=== PATIENT | female | born 1975 | race Hispanic/Latino ===

== ENCOUNTER 2021-04-02 06:55 | Inpatient (IN) | payer OTHER ==
[2021-04-02] VITALS (8 sets, daily range): BP systolic 113–143; BP diastolic 67–77
[~2021-04-02] VITALS: Ht 154.9 cm; Wt 76.7 kg
[~2021-04-02 06:55] MED LIST: AMOX-420 PO; ASPI-556 PO; ATOR40TA69 PO; CLOP75TA14 PO; ERGO500014 PO; ETAN50SY SQ; FISH1CAP27 PO; FOLI1TAB15 PO; FURO40TA5 PO; HYDR200T82 PO; IBUP-2077 PO; LACT1CAP58 PO; LEVO500T2 PO; METH25VI11 SQ; METO37.5 PO; PANT40TA54 PO; PRED2.5T PO; PRED20TA3 PO
[2021-04-02] MEDS ORDERED: ACETAMINOPHEN 500 MG TABLET PO SCH (07:30)
[2021-04-02 08:03] LABS: ABG BASE EXCESS 1.5 mmol/L (-2.0-3.0); ABG HCO3 24.1 mmol/L (21.0-28.0); ABG OXYGEN SATURATION 94.7 % (95.0-99.0); ABG PCO2 33 mmHg (32-45)
[2021-04-02 09:46] LABS: BASOPHILS % (AUTO) 0.3 % (0.0-5.0); EOSINOPHILS % (AUTO) 0.9 % (0.0-8.0); HEMATOCRIT 37.4 % (36-48); LYMPHOCYTES % (AUTO) 12.1 % (21.0-51.0); MEAN CORPUSCULAR HGB CONC 31.8 g/dL (32.0-36.0); MONOCYTES % (AUTO) 14.9 % (3.0-13.0); NEUTROPHILS % (AUTO) 71.2 % (40.0-77.0); PLATELET COUNT (AUTO) 189 K/uL (130-400); RED CELL DISTRIBUTION WIDTH 17.6 % (11.0-15.5); WHITE BLOOD COUNT (AUTO) 14.4 K/uL (4.8-10.8)
[2021-04-02 09:54] LABS: CREATININE 1.1 mg/dL (0.5-1.5); POTASSIUM 3.4 mmol/L (3.5-5.1)
[2021-04-02 09:56] LABS: INR 1.15 (0.85-1.15); PROTHROMBIN TIME 12.4 SEC (9.6-11.6)
[2021-04-02 09:59] LABS: ALBUMIN 2.4 g/dL (3.5-5.0); BILIRUBIN,TOTAL 0.5 mg/dL (0.2-1.0)
[2021-04-02 10:25] LABS: APPEARANCE,URINE Turbid (CLEAR); BILIRUBIN,URINE Negative (NEGATIVE); COLOR,URINE Dark Yellow (YELLOW); GLUCOSE, URINE (UA) Negative (NEGATIVE); KETONES,URINE Trace mg/dL (NEGATIVE); LEUKOCYTE ESTERASE ,URINE Large (NEGATIVE); NITRATE,URINE Positive (NEGATIVE); OCCULT BLOOD,URINE Large (NEGATIVE); PH,URINE 5.5 (5.0-8.0); PROTEIN,URINE POS 2+ mg/dL (NEGATIVE)
[2021-04-02 11:06] LABS: BACTERIA,URINE Moderate /HPF (None Seen); MUCUS,URINE Few LPF (None Seen); RBC,URINE >100 /HPF (0-1); WBC,URINE >100 /HPF (0-1); YEAST,URINE BUDDING Rare /HPF (None Seen)
[2021-04-02] MEDS ORDERED: CEFTRIAXONE SODIUM IV ONE (12:30)
[2021-04-02] MEDS ORDERED: CEFTRIAXONE SODIUM 2 GM VIAL IVP SCH (12:30)
[2021-04-02] MEDS ORDERED: SODIUM CHLORIDE 0.9% IV ONE (12:30)
[2021-04-02] MEDS ORDERED: PIP/TAZ ZOSYN 3.375G 3.375 GM VIAL IVPB SCH (13:00)
[2021-04-02] MEDS ORDERED: 0.9% SODIUM CHLORIDE 50 ML IV BAG IV SCH (13:00)
[2021-04-02] MEDS ORDERED: SODIUM CHLORIDE 0.9% 50 ML IV ONE (13:21)
[2021-04-02] MEDS: ZOSYN 3.375GM+NS 50ML 50 ML IV SCH ×2 (13:22→21:08)
[2021-04-02] MEDS ORDERED: ACETAMINOPHEN-CODEINE 300/30MG TAB PO PRN (13:30)
[2021-04-02] MEDS ORDERED: LACTULOSE 20 GM/30 ML UDCUP PO PRN (13:30)
[2021-04-02] MEDS ORDERED: MAG HYDROX/AL HYDROX/SIMETH ES 30 ML SUSP UDCUP PO PRN (13:30)
[2021-04-02 13:49] LABS: CRP QUANTITATIVE 432.9 mg/L (0.00-9.0)
[2021-04-02] MEDS: LACTATED RINGERS 1000ML 1,000 ML IV SCH (14:37)
[2021-04-02] MEDS: IPRATROPIUM/ALBUTEROL SULFATE 3 ML SOLUTION IH PRN ×2 (14:49→19:37)
[2021-04-02] MEDS ORDERED: ACETAMINOPHEN 325 MG TAB PO PRN (19:00)
[2021-04-02] MEDS ORDERED: FAMOTIDINE 20MG TAB 20 MG TAB PO SCH (21:00)
[2021-04-02] MEDS: PREDNISONE 5 MG TABLET PO SCH (21:07)
[2021-04-03] VITALS (11 sets, daily range): BP systolic 102–153; BP diastolic 66–89
[2021-04-03] MEDS: IPRATROPIUM/ALBUTEROL SULFATE 3 ML SOLUTION IH PRN ×4 (00:05→23:24)
[2021-04-03] MEDS ORDERED: PRED5POW11 MC (01:47)
[2021-04-03] MEDS ORDERED: FAMO20TA8 PO (01:47)
[2021-04-03] MEDS ORDERED: SULF500T8 PO (01:58)
[2021-04-03] MEDS ORDERED: FERS325 PO (01:58)
[2021-04-03] MEDS ORDERED: AZAT50TA17 PO (01:58)
[2021-04-03] MEDS ORDERED: PRED5TAB PO (01:58)
[2021-04-03] MEDS: LACTATED RINGERS 1000ML 1,000 ML IV SCH (04:08)
[2021-04-03] MEDS: ZOSYN 3.375GM+NS 50ML 50 ML IV SCH ×3 (05:01→21:15)
[2021-04-03] MEDS ORDERED: ADAL40SY SQ (07:06)
[2021-04-03 07:32] LABS: BASOPHILS % (AUTO) 0.3 % (0.0-5.0); EOSINOPHILS % (AUTO) 0.2 % (0.0-8.0); HEMATOCRIT 32.7 % (36-48); LYMPHOCYTES % (AUTO) 21.8 % (21.0-51.0); MEAN CORPUSCULAR HEMOGLOBIN 27.1 pg (27.0-33.0); MEAN CORPUSCULAR HGB CONC 31.8 g/dL (32.0-36.0); MEAN CORPUSCULAR VOLUME 85.2 fL (79-99); MONOCYTES % (AUTO) 10.4 % (3.0-13.0); NEUTROPHILS % (AUTO) 66.9 % (40.0-77.0); PLATELET COUNT (AUTO) 181 K/uL (130-400); RED BLOOD CELL COUNT(AUTO) 3.84 MIL/uL (4.00-5.50); RED CELL DISTRIBUTION WIDTH 17.9 % (11.0-15.5); WHITE BLOOD COUNT (AUTO) 10.5 K/uL (4.8-10.8)
[2021-04-03 07:48] LABS: ALBUMIN 2.1 g/dL (3.5-5.0); BILIRUBIN,TOTAL 0.3 mg/dL (0.2-1.0); CREATININE 0.9 mg/dL (0.5-1.5); MAGNESIUM 2.5 mg/dL (1.80-2.40); POTASSIUM 3.4 mmol/L (3.5-5.1); TOTAL PROTEIN, SERUM 7.4 g/dL (6.0-8.3)
[2021-04-03] MEDS: SULFASALAZINE 500 MG TAB.DR PO SCH ×2 (08:53→21:08)
[2021-04-03] MEDS: PANTOPRAZOLE SODIUM 40 MG TABLET.DR PO SCH (08:54)
[2021-04-03] MEDS: FERROUS SULFATE 325 MG TABLET.DR PO SCH (08:54)
[2021-04-03] MEDS: ENOXAPARIN SODIUM 40 MG/0.4 ML SYRINGE SQ SCH (08:54)
[2021-04-03] MEDS ORDERED: FAMOTIDINE 20MG TAB 20 MG TAB PO SCH (09:00)
[2021-04-03] MEDS ORDERED: SODIUM CHLORIDE 0.9% 50 ML IV ONE (13:14)
[2021-04-03] MEDS: PREDNISONE 5 MG TABLET PO SCH (21:08)
[2021-04-04] VITALS (7 sets, daily range): BP systolic 122–150; BP diastolic 68–93
[2021-04-04] MEDS: ZOSYN 3.375GM+NS 50ML 50 ML IV SCH (05:16)
[2021-04-04 06:24] LABS: BASOPHILS % (AUTO) 0.4 % (0.0-5.0); EOSINOPHILS % (AUTO) 0.3 % (0.0-8.0); LYMPHOCYTES % (AUTO) 19.8 % (21.0-51.0); MEAN CORPUSCULAR HEMOGLOBIN 26.8 pg (27.0-33.0); MEAN CORPUSCULAR HGB CONC 31.2 g/dL (32.0-36.0); MEAN CORPUSCULAR VOLUME 85.7 fL (79-99); NEUTROPHILS % (AUTO) 69.8 % (40.0-77.0); PLATELET COUNT (AUTO) 240 K/uL (130-400); RED BLOOD CELL COUNT(AUTO) 3.85 MIL/uL (4.00-5.50); RED CELL DISTRIBUTION WIDTH 17.5 % (11.0-15.5); WHITE BLOOD COUNT (AUTO) 7.5 K/uL (4.8-10.8)
[2021-04-04 06:55] LABS: CREATININE 0.8 mg/dL (0.5-1.5); POTASSIUM 3.7 mmol/L (3.5-5.1)
[2021-04-04] MEDS ORDERED: KCL 20 MEQ ERTAB PO PRN (09:15)
[2021-04-04] MEDS: FERROUS SULFATE 325 MG TABLET.DR PO SCH (09:21)
[2021-04-04] MEDS: SULFASALAZINE 500 MG TAB.DR PO SCH ×2 (09:21→21:27)
[2021-04-04] MEDS: ENOXAPARIN SODIUM 40 MG/0.4 ML SYRINGE SQ SCH (09:22)
[2021-04-04] MEDS: PANTOPRAZOLE SODIUM 40 MG TABLET.DR PO SCH (09:32)
[2021-04-04] MEDS: CEFTRIAXONE SODIUM 2 GM VIAL IVP SCH (13:21)
[2021-04-04] MEDS: PREDNISONE 5 MG TABLET PO SCH (21:27)
[2021-04-05] VITALS (7 sets, daily range): BP systolic 121–138; BP diastolic 66–94
[2021-04-05 04:07] LABS: BASOPHILS % (AUTO) 0.4 % (0.0-5.0); EOSINOPHILS % (AUTO) 1.5 % (0.0-8.0); HEMATOCRIT 31.4 % (36-48); LYMPHOCYTES % (AUTO) 16.9 % (21.0-51.0); MEAN CORPUSCULAR HEMOGLOBIN 26.4 pg (27.0-33.0); MEAN CORPUSCULAR HGB CONC 30.9 g/dL (32.0-36.0); MEAN CORPUSCULAR VOLUME 85.3 fL (79-99); MONOCYTES % (AUTO) 6.6 % (3.0-13.0); PLATELET COUNT (AUTO) 305 K/uL (130-400); RED BLOOD CELL COUNT(AUTO) 3.68 MIL/uL (4.00-5.50); RED CELL DISTRIBUTION WIDTH 17.4 % (11.0-15.5); WHITE BLOOD COUNT (AUTO) 8.4 K/uL (4.8-10.8)
[2021-04-05 04:15] LABS: CREATININE 0.7 mg/dL (0.5-1.5); POTASSIUM 4.2 mmol/L (3.5-5.1)
[2021-04-05] MEDS: SULFASALAZINE 500 MG TAB.DR PO SCH ×2 (09:47→20:05)
[2021-04-05] MEDS: ENOXAPARIN SODIUM 40 MG/0.4 ML SYRINGE SQ SCH (09:47)
[2021-04-05] MEDS: FERROUS SULFATE 325 MG TABLET.DR PO SCH (09:47)
[2021-04-05] MEDS: PANTOPRAZOLE SODIUM 40 MG TABLET.DR PO SCH (09:47)
[2021-04-05] MEDS: CEFTRIAXONE SODIUM 2 GM VIAL IVP SCH (12:40)
[2021-04-05] MEDS: PREDNISONE 5 MG TABLET PO SCH (20:05)
[2021-04-06 03:57] LABS: BASOPHILS % (AUTO) 0.2 % (0.0-5.0); EOSINOPHILS % (AUTO) 0.8 % (0.0-8.0); HEMATOCRIT 34.4 % (36-48); LYMPHOCYTES % (AUTO) 15.8 % (21.0-51.0); MEAN CORPUSCULAR HEMOGLOBIN 26.5 pg (27.0-33.0); MEAN CORPUSCULAR HGB CONC 30.5 g/dL (32.0-36.0); MEAN CORPUSCULAR VOLUME 86.9 fL (79-99); MONOCYTES % (AUTO) 5.7 % (3.0-13.0); NEUTROPHILS % (AUTO) 76.9 % (40.0-77.0); PLATELET COUNT (AUTO) 432 K/uL (130-400); RED BLOOD CELL COUNT(AUTO) 3.96 MIL/uL (4.00-5.50); WHITE BLOOD COUNT (AUTO) 9.4 K/uL (4.8-10.8)
[2021-04-06 04:05] LABS: CREATININE 0.8 mg/dL (0.5-1.5); POTASSIUM 4.5 mmol/L (3.5-5.1)
[2021-04-06 04:10] VITALS: BP 123/72
[2021-04-06 08:00] VITALS: BP 145/80
[2021-04-06] MEDS: PANTOPRAZOLE SODIUM 40 MG TABLET.DR PO SCH (09:27)
[2021-04-06] MEDS: FERROUS SULFATE 325 MG TABLET.DR PO SCH (09:27)
[2021-04-06] MEDS: SULFASALAZINE 500 MG TAB.DR PO SCH (09:27)
[2021-04-06] MEDS: ENOXAPARIN SODIUM 40 MG/0.4 ML SYRINGE SQ SCH (09:32)
[2021-04-06 12:00] VITALS: BP 135/82
[2021-04-06] MEDS ORDERED: LEVO750T46 PO (12:58)
[2021-04-06] MEDS: CEFTRIAXONE SODIUM 2 GM VIAL IVP SCH (15:27)
[2021-04-06 16:00] VITALS: BP 133/80
== END 2021-04-06 17:29 | disposition home or self-care (01) | DRG 872 ==
LOC: EDH 06:55 → EDHIP 06:56 → 4CH 04-04 11:36
PROVIDERS: ADMIT Internal Medicine; ATTEND Internal Medicine
DX: A41.50 Gram-negative sepsis, unspecified (principal); N30.00 Acute cystitis without hematuria; N13.6 Pyonephrosis; M06.9 Rheumatoid arthritis, unspecified; E87.6 Hypokalemia; E66.9 Obesity, unspecified; I25.10 Atherosclerotic heart disease of native coronary artery without angina pectoris; I45.10 Unspecified right bundle-branch block; D23.9 Other benign neoplasm of skin, unspecified; N85.2 Hypertrophy of uterus; B96.20 Unspecified Escherichia coli [E. coli] as the cause of diseases classified elsewhere; I50.9 Heart failure, unspecified; Z20.822 Contact with and (suspected) exposure to COVID-19; Z68.32 Body mass index [BMI] 32.0-32.9, adult; I25.2 Old myocardial infarction; Z79.52 Long term (current) use of systemic steroids; Z82.49 Family history of ischemic heart disease and other diseases of the circulatory system
CPT/HCPCS: 36415; 36600; 71045; 74176; 76856; 80048; 80053; 81001; 82803; 83605; 83735; 83880; 84145; 84484; 84703; 85025; 85610; 85651; 86140; 87040; 87077; 87088; 87186; 87635; 87804; 87880; 93005; 93306; 93356; 94640; 94664; C9803; G0378; J0696; J1650; J2543; J7512

== ENCOUNTER 2022-10-15 13:44 | Emergency (ER) | payer MEDICAID ==
[~2022-10-15] VITALS: Ht 154.9 cm; Wt 82.6 kg
[~2022-10-15 13:44] MED LIST changes: -AMOX-420 PO; -ASPI-556 PO; -ATOR40TA69 PO; +AZAT50TA17 PO; -CLOP75TA14 PO; -ETAN50SY SQ; +FAMO20TA8 PO; +FERS325 PO; -FISH1CAP27 PO; -FOLI1TAB15 PO; -FURO40TA5 PO; -HYDR200T82 PO; -IBUP-2077 PO; -LACT1CAP58 PO; -LEVO500T2 PO; +LEVO750T68 PO; -METH25VI11 SQ; -METO37.5 PO; -PANT40TA54 PO; -PRED2.5T PO; -PRED20TA3 PO; +PRED5TAB PO; +SULF500T8 PO
[2022-10-15 15:12] LABS: BASOPHILS % (AUTO) 0.2 % (0.0-5.0); EOSINOPHILS % (AUTO) 0.6 % (0.0-8.0); HEMATOCRIT 41.9 % (36-48); LYMPHOCYTES % (AUTO) 8.5 % (21.0-51.0); MEAN CORPUSCULAR HEMOGLOBIN 28.7 pg (27.0-33.0); MEAN CORPUSCULAR HGB CONC 32.5 g/dL (32.0-36.0); MEAN CORPUSCULAR VOLUME 88.4 fL (79-99); MONOCYTES % (AUTO) 7.7 % (3.0-13.0); NEUTROPHILS % (AUTO) 82.5 % (40.0-77.0); PLATELET COUNT (AUTO) 275 K/uL (130-400); RED BLOOD CELL COUNT(AUTO) 4.74 MIL/uL (4.00-5.50); RED CELL DISTRIBUTION WIDTH 13.7 % (11.0-15.5); WHITE BLOOD COUNT (AUTO) 19.2 K/uL (4.8-10.8)
[2022-10-15 15:31] LABS: CREATININE 0.7 mg/dL (0.5-1.5); POTASSIUM 3.2 mmol/L (3.5-5.1)
[2022-10-15] MEDS ORDERED: DEXAMETHASONE SOD PHOSPHATE 4 MG/ML 1ML VIAL IV STA (15:43)
[2022-10-15] MEDS ORDERED: ACETAMINOPHEN 500 MG TABLET PO STA (15:44)
[2022-10-15 15:45] LABS: ALBUMIN 2.9 g/dL (3.5-5.0); TOTAL PROTEIN, SERUM 8.2 g/dL (6.0-8.3)
[2022-10-15] MEDS ORDERED: 0.9%NACL 1000ML 1,000 ML IV ONE (16:00)
[2022-10-15 16:16] VITALS: BP 134/91
[2022-10-15 17:38] LABS: APPEARANCE,URINE CLEAR (CLEAR); BILIRUBIN,URINE NEGATIVE (NEGATIVE); COLOR,URINE LIGHT-YELLOW (YELLOW); GLUCOSE, URINE (UA) NEGATIVE (NEGATIVE); KETONES,URINE NEGATIVE (NEGATIVE); LEUKOCYTE ESTERASE ,URINE NEGATIVE Leu/uL (NEGATIVE); NITRATE,URINE NEGATIVE (NEGATIVE); OCCULT BLOOD,URINE NEGATIVE (NEGATIVE); PH,URINE 5.5 (5.0-8.0); PROTEIN,URINE NEGATIVE (NEGATIVE); UROBILINOGEN,URINE 0.2 mg/dL (0.2-1.0)
[2022-10-15 17:40] LABS: MUCUS,URINE RARE LPF (None Seen); SQUAMOUS EPITHELIAL CELL,UR MOD /HPF (0-2)
[2022-10-15] MEDS ORDERED: DOXY100C5 PO (17:45)
[2022-10-15] MEDS ORDERED: OSEL75 PO (17:45)
== END 2022-10-15 18:07 | disposition home or self-care (01) ==
LOC: EDH 13:44 → EEVIPCON 13:44 → EDH 18:07
DX: J10.1 Influenza due to other identified influenza virus with other respiratory manifestations (principal); D72.829 Elevated white blood cell count, unspecified; I25.10 Atherosclerotic heart disease of native coronary artery without angina pectoris; I10 Essential (primary) hypertension; I21.9 Acute myocardial infarction, unspecified; J84.10 Pulmonary fibrosis, unspecified; M06.9 Rheumatoid arthritis, unspecified; Z90.710 Acquired absence of both cervix and uterus; Z20.822 Contact with and (suspected) exposure to COVID-19
CPT/HCPCS: 99285; 96374; 71045; 96361; 87635; 84484; 80053; 85025; 87040 ×2; 87804 ×2; 83605; 81001; 36415; 93005; J1100; C9803; J7030

== ENCOUNTER 2023-01-01 17:32 | Emergency (ER) | payer MEDICAID ==
[~2023-01-01] VITALS: Ht 154.9 cm; Wt 81.6 kg
[~2023-01-01 17:32] MED LIST changes: +DOXY100C5 PO; +OSEL75 PO
[2023-01-01 18:47] LABS: BASOPHILS % (AUTO) 0.5 % (0.0-5.0); EOSINOPHILS % (AUTO) 9.2 % (0.0-8.0); HEMATOCRIT 42.7 % (36-48); LYMPHOCYTES % (AUTO) 12.6 % (21.0-51.0); MEAN CORPUSCULAR HEMOGLOBIN 28.4 pg (27.0-33.0); MEAN CORPUSCULAR HGB CONC 32.3 g/dL (32.0-36.0); MEAN CORPUSCULAR VOLUME 87.9 fL (79-99); MONOCYTES % (AUTO) 7.4 % (3.0-13.0); PLATELET COUNT (AUTO) 279 K/uL (130-400); RED BLOOD CELL COUNT(AUTO) 4.86 MIL/uL (4.00-5.50); RED CELL DISTRIBUTION WIDTH 13.9 % (11.0-15.5); WHITE BLOOD COUNT (AUTO) 10.3 K/uL (4.8-10.8)
[2023-01-01 18:59] LABS: CREATININE 0.7 mg/dL (0.5-1.5); POTASSIUM 3.4 mmol/L (3.5-5.1)
[2023-01-01 19:09] LABS: ALBUMIN 2.8 g/dL (3.5-5.0); TOTAL PROTEIN, SERUM 8.1 g/dL (6.0-8.3)
[2023-01-01 19:10] LABS: APPEARANCE,URINE CLEAR (CLEAR); BILIRUBIN,URINE NEGATIVE (NEGATIVE); COLOR,URINE YELLOW (YELLOW); GLUCOSE, URINE (UA) NEGATIVE (NEGATIVE); KETONES,URINE NEGATIVE (NEGATIVE); LEUKOCYTE ESTERASE ,URINE NEGATIVE Leu/uL (NEGATIVE); NITRATE,URINE NEGATIVE (NEGATIVE); OCCULT BLOOD,URINE NEGATIVE (NEGATIVE); PH,URINE 5.5 (5.0-8.0); PROTEIN,URINE NEGATIVE (NEGATIVE); UROBILINOGEN,URINE 0.2 mg/dL (0.2-1.0)
[2023-01-01] MEDS ORDERED: NITROGLYCERIN 0.4 MG SL TAB SL STA (19:16)
[2023-01-01] MEDS ORDERED: PANTOPRAZOLE 40 MG/VIAL IVP STA (19:47)
[2023-01-01] MEDS ORDERED: KETOROLAC 15MG/ML VIAL (15MG/ML) ONE (21:57)
[2023-01-01] MEDS ORDERED: KETOROLAC 15MG/ML VIAL (15MG/ML) IM ONE (22:00)
[2023-01-01 22:22] VITALS: BP 121/78
== END 2023-01-01 22:24 | disposition home or self-care (01) ==
LOC: EDH 17:32
DX: N60.12 Diffuse cystic mastopathy of left breast (principal); J84.10 Pulmonary fibrosis, unspecified; I10 Essential (primary) hypertension; Z90.710 Acquired absence of both cervix and uterus; Z98.890 Other specified postprocedural states; Z79.899 Other long term (current) drug therapy
CPT/HCPCS: 99285; 96374; 71045; 84484 ×2; 80053; 85025; 81003; 36415; 93005; 96372; J1885; S0164; C9113

== ENCOUNTER 2023-09-08 06:41 | Emergency (ER) | payer MEDICAID, OTHER ==
[~2023-09-08] VITALS: Ht 154.9 cm; Wt 78.9 kg
[2023-09-08] MEDS ORDERED: METOCLOPRAMIDE 10 MG/2 ML VIAL IVP ONE (09:00)
[2023-09-08] MEDS ORDERED: FAMOTIDINE 20MG VIAL IV ONE (09:00)
[2023-09-08] MEDS ORDERED: KETOROLAC 30MG VIAL (30MG/ML) IVP ONE (09:00)
[2023-09-08] MEDS ORDERED: ALBUTEROL 0.083% 2.5 MG/3 ML INH IH ONE (09:00)
[2023-09-08] MEDS ORDERED: 0.9%NACL 1000ML 1,000 ML IV ONE (09:00)
[2023-09-08 09:07] VITALS: PULSE 105; RESP 19
[2023-09-08 09:10] LABS: BASOPHILS # (AUTO) 0.06 K/uL (0.00-0.20); BASOPHILS % (AUTO) 0.4 % (0.0-5.0); EOSINOPHILS # (AUTO) 0.41 K/uL (0.00-0.70); EOSINOPHILS % (AUTO) 3.1 % (0.0-8.0); HEMATOCRIT 45.3 % (36-48); IMMATURE GRANULOCYTE ABSOLUTE 0.06 K/uL (0-1); LYMPHOCYTES # (AUTO) 2.1 K/uL (1.0-4.8); LYMPHOCYTES % (AUTO) 15.5 % (21.0-51.0); MEAN CORPUSCULAR HEMOGLOBIN 29.3 pg (27.0-33.0); MEAN CORPUSCULAR HGB CONC 32.9 g/dL (32.0-36.0); MEAN CORPUSCULAR VOLUME 89.2 fL (79-99); MONOCYTES % (AUTO) 7.3 % (3.0-13.0); NEUTROPHILS # (AUTO) 9.8 K/uL (1.8-7.7); NEUTROPHILS % (AUTO) 73.3 % (40.0-77.0); PLATELET COUNT (AUTO) 225 K/uL (130-400); RED BLOOD CELL COUNT(AUTO) 5.08 MIL/uL (4.00-5.50); RED CELL DISTRIBUTION WIDTH 13.2 % (11.0-15.5); WHITE BLOOD COUNT (AUTO) 13.3 K/uL (4.8-10.8)
[2023-09-08 09:28] LABS: CREATININE 0.5 mg/dL (0.5-1.5); POTASSIUM 3.4 mmol/L (3.5-5.1)
[2023-09-08 09:29] LABS: INR < 0.93 (0.85-1.15); PROTHROMBIN TIME 10.7 SEC (9.6-11.6)
[2023-09-08 09:30] LABS: ALBUMIN 2.9 g/dL (3.5-5.0); BILIRUBIN,TOTAL 0.5 mg/dL (0.2-1.0); PARTIAL THROMBOPLASTIN TIME 27.9 SEC (26.3-35.5); TOTAL PROTEIN, SERUM 8.4 g/dL (6.0-8.3)
[2023-09-08 09:54] LABS: COVID19 (SARS ANTIGEN RAPID) POSITIVE FOR SARS AG (NEGATIVE)
[2023-09-08 10:07] LABS: APPEARANCE,URINE CLEAR (CLEAR); BILIRUBIN,URINE NEGATIVE (NEGATIVE); COLOR,URINE LIGHT-YELLOW (YELLOW); GLUCOSE, URINE (UA) NEGATIVE (NEGATIVE); KETONES,URINE NEGATIVE (NEGATIVE); LEUKOCYTE ESTERASE ,URINE 75 Leu/uL (NEGATIVE); NITRATE,URINE NEGATIVE (NEGATIVE); OCCULT BLOOD,URINE NEGATIVE (NEGATIVE); PH,URINE 7.5 (5.0-8.0); PROTEIN,URINE NEGATIVE (NEGATIVE); UROBILINOGEN,URINE 0.2 mg/dL (0.2-1.0)
[2023-09-08 10:09] LABS: ADD UA MICROSCOPIC YES
[2023-09-08 10:11] LABS: BACTERIA,URINE RARE /HPF (None Seen); MUCUS,URINE RARE LPF (None Seen); RBC,URINE 0-1 /HPF (0-1); SQUAMOUS EPITHELIAL CELL,UR MOD /HPF (0-2)
[2023-09-08 10:56] LABS: INFLUENZA TYPE A POSITIVE FOR TYPE A (NEG); INFLUENZA TYPE B NEGATIVE FOR TYPE B (NEG)
[2023-09-08] MEDS ORDERED: OSELTAMIVIR PHOSPHATE 75 MG CAP PO ONE (11:00)
[2023-09-08] MEDS ORDERED: CEFTRIAXONE 2GM VIAL IVPB ONE (11:30)
[2023-09-08] MEDS ORDERED: ALBUHFA IH (11:42)
[2023-09-08] MEDS ORDERED: AUD IH (11:42)
[2023-09-08] MEDS ORDERED: BENZ-39 PO (11:42)
[2023-09-08] MEDS ORDERED: OSEL75 PO (11:42)
[2023-09-08] MEDS ORDERED: METO-296 PO (11:42)
[2023-09-08] MEDS ORDERED: CEPH500B PO (11:42)
[2023-09-08] MEDS ORDERED: FAMO-136 PO (11:42)
[2023-09-08 11:51] VITALS: BP 140/81; PULSE 107; RESP 19; O2SAT 98
== END 2023-09-08 12:05 | disposition home or self-care (01) ==
LOC: EDH 06:41
DX: U07.1 COVID-19 (principal); N39.0 Urinary tract infection, site not specified; J11.1 Influenza due to unidentified influenza virus with other respiratory manifestations; I10 Essential (primary) hypertension; M19.90 Unspecified osteoarthritis, unspecified site; Z79.899 Other long term (current) drug therapy; Z90.710 Acquired absence of both cervix and uterus
CPT/HCPCS: 99285; 96365; 96375; 96361; 87426; 82550; 84484; 80053; 85025; 85610; 85730; 87040 ×2; 87088; 87804 ×2; 83605; 81001; 36415; 94640; J3490; J7030; J0696; J1885; J2765

== ENCOUNTER 2024-02-02 14:00 | Emergency (ER) | payer OTHER ==
[~2024-02-02] VITALS: Ht 154.9 cm; Wt 78.0 kg
[~2024-02-02 14:00] MED LIST changes: +ALBUHFA IH; +AUD IH; +BENZ-39 PO; +CEPH500B PO; +FAMO-136 PO; +METO-296 PO
[2024-02-02 14:44] LABS: BASOPHILS # (AUTO) 0.04 K/uL (0.00-0.20); BASOPHILS % (AUTO) 0.3 % (0.0-5.0); EOSINOPHILS # (AUTO) 0.19 K/uL (0.00-0.70); EOSINOPHILS % (AUTO) 1.6 % (0.0-8.0); HEMATOCRIT 45.3 % (36-48); IMMATURE GRANULOCYTE ABSOLUTE 0.07 K/uL (0-1); LYMPHOCYTES # (AUTO) 1.4 K/uL (1.0-4.8); LYMPHOCYTES % (AUTO) 11.2 % (21.0-51.0); MEAN CORPUSCULAR HEMOGLOBIN 29.5 pg (27.0-33.0); MEAN CORPUSCULAR HGB CONC 32.7 g/dL (32.0-36.0); MEAN CORPUSCULAR VOLUME 90.4 fL (79-99); MONOCYTES # (AUTO) 0.7 K/uL (0.1-1.0); MONOCYTES % (AUTO) 6.1 % (3.0-13.0); NEUTROPHILS # (AUTO) 9.8 K/uL (1.8-7.7); NEUTROPHILS % (AUTO) 80.2 % (40.0-77.0); PLATELET COUNT (AUTO) 279 K/uL (130-400); RED BLOOD CELL COUNT(AUTO) 5.01 MIL/uL (4.00-5.50); RED CELL DISTRIBUTION WIDTH 14.1 % (11.0-15.5); WHITE BLOOD COUNT (AUTO) 12.2 K/uL (4.8-10.8)
[2024-02-02 14:57] LABS: CREATININE 0.7 mg/dL (0.5-1.0); POTASSIUM 3.8 mmol/L (3.5-5.1)
[2024-02-02 14:59] LABS: ALBUMIN 2.9 g/dL (3.5-5.0); BILIRUBIN,TOTAL 0.6 mg/dL (0.2-1.0); TOTAL PROTEIN, SERUM 8.3 g/dL (6.0-8.3)
[2024-02-02] MEDS: KETOROLAC 15MG/ML VIAL (15MG/ML) IV ONE (15:11)
[2024-02-02] MEDS: DiphenhydrAMINE HCL 50 MG/ML VIAL IV ONE (15:12)
[2024-02-02] MEDS: PROCHLORPERAZINE 10MG/2ML INJ IV ONE (15:12)
[2024-02-02 16:30] VITALS: BP 102/51; PULSE 94; RESP 16; O2SAT 94
== END 2024-02-02 17:23 | disposition home or self-care (01) ==
LOC: EDH 14:00
DX: R07.9 Chest pain, unspecified (principal); R42 Dizziness and giddiness; I10 Essential (primary) hypertension; I25.2 Old myocardial infarction; M19.90 Unspecified osteoarthritis, unspecified site; Z90.710 Acquired absence of both cervix and uterus; Z79.899 Other long term (current) drug therapy
CPT/HCPCS: 99285; 96374; 71045; 96375; 84484; 80053; 83880; 85025; 36415; 93005; J1200; J0780; J1885

== ENCOUNTER 2024-04-06 17:37 | Emergency (ER) | payer BC, OTHER ==
[~2024-04-06] VITALS: Ht 154.9 cm; Wt 78.9 kg
[2024-04-06 18:47] LABS: BASOPHILS # (AUTO) 0.06 K/uL (0.00-0.20); BASOPHILS % (AUTO) 0.5 % (0.0-5.0); EOSINOPHILS # (AUTO) 0.51 K/uL (0.00-0.70); HEMATOCRIT 42.4 % (36-48); IMMATURE GRANULOCYTE ABSOLUTE 0.05 K/uL (0-1); LYMPHOCYTES # (AUTO) 2.6 K/uL (1.0-4.8); MEAN CORPUSCULAR HEMOGLOBIN 29.2 pg (27.0-33.0); MEAN CORPUSCULAR VOLUME 88.3 fL (79-99); MONOCYTES # (AUTO) 1.1 K/uL (0.1-1.0); MONOCYTES % (AUTO) 8.3 % (3.0-13.0); NEUTROPHILS # (AUTO) 8.5 K/uL (1.8-7.7); NEUTROPHILS % (AUTO) 66.8 % (40.0-77.0); PLATELET COUNT (AUTO) 295 K/uL (130-400); RED CELL DISTRIBUTION WIDTH 14.8 % (11.0-15.5); WHITE BLOOD COUNT (AUTO) 12.8 K/uL (4.8-10.8)
[2024-04-06 18:57] LABS: CREATININE 0.6 mg/dL (0.5-1.0); POTASSIUM 3.6 mmol/L (3.5-5.1)
[2024-04-06 19:01] LABS: ALBUMIN 2.7 g/dL (3.5-5.0); BILIRUBIN,TOTAL 0.3 mg/dL (0.2-1.0); TOTAL PROTEIN, SERUM 8.2 g/dL (6.0-8.3)
[2024-04-06 19:22] LABS: APPEARANCE,URINE CLOUDY (CLEAR); BILIRUBIN,URINE NEGATIVE (NEGATIVE); COLOR,URINE YELLOW (YELLOW); GLUCOSE, URINE (UA) NEGATIVE (NEGATIVE); KETONES,URINE NEGATIVE (NEGATIVE); LEUKOCYTE ESTERASE ,URINE 250 Leu/uL (NEGATIVE); NITRATE,URINE NEGATIVE (NEGATIVE); OCCULT BLOOD,URINE NEGATIVE (NEGATIVE); PH,URINE 5.5 (5.0-8.0); PROTEIN,URINE NEGATIVE (NEGATIVE); UROBILINOGEN,URINE 0.2 mg/dL (0.2-1.0)
[2024-04-06 19:24] LABS: ADD UA MICROSCOPIC YES
[2024-04-06 19:27] LABS: MUCUS,URINE RARE LPF (None Seen); SQUAMOUS EPITHELIAL CELL,UR MOD /HPF (0-2)
[2024-04-06] MEDS: 0.9%NACL 1000ML 1,000 ML IV ONE (19:27)
[2024-04-06] MEDS: KETOROLAC 30MG VIAL (30MG/ML) IVP ONE (19:27)
[2024-04-06 20:18] VITALS: BP 142/87; PULSE 80; RESP 16; O2SAT 98
== END 2024-04-06 20:27 | disposition home or self-care (01) ==
LOC: EDH 17:37
DX: D18.03 Hemangioma of intra-abdominal structures (principal); D72.829 Elevated white blood cell count, unspecified; I10 Essential (primary) hypertension; M19.90 Unspecified osteoarthritis, unspecified site; Z79.899 Other long term (current) drug therapy; Z90.710 Acquired absence of both cervix and uterus; Z98.890 Other specified postprocedural states
CPT/HCPCS: 99284; 96374; 76705; 80053; 83690; 85025; 87086; 81001; 36415; J7030; J1885

== ENCOUNTER 2024-10-05 23:49 | Inpatient (IN) | payer BC ==
[~2024-10-05] VITALS: Ht 154.9 cm; Wt 80.3 kg
[~2024-10-05 23:49] MED LIST changes: +KETO10TA2 PO
--- NOTE | 2024-10-06 00:04 | NUR ---
SEPSIS ALERT CALLED TO [facility]; PT WITH TEMP OF 102.2, PULSE OF 132
[2024-10-06 00:26] LABS: RAPID GROUP A STREP negative (NEGATIVE)
[2024-10-06] MEDS: acetaMINOPHEN 500 MG TABLET PO ONE (00:26)
[2024-10-06 00:29] LABS: BASOPHILS # (AUTO) 0.11 K/uL (0.00-0.20); BASOPHILS % (AUTO) 0.7 % (0.0-5.0); EOSINOPHILS # (AUTO) 0.69 K/uL (0.00-0.70); EOSINOPHILS % (AUTO) 4.1 % (0.0-8.0); HEMATOCRIT 45.8 % (36-48); IMMATURE GRANULOCYTE ABSOLUTE 0.09 K/uL (0-1); LYMPHOCYTES # (AUTO) 2.1 K/uL (1.0-4.8); LYMPHOCYTES % (AUTO) 12.2 % (21.0-51.0); MEAN CORPUSCULAR HEMOGLOBIN 29.1 pg (27.0-33.0); MEAN CORPUSCULAR HGB CONC 31.9 g/dL (32.0-36.0); MEAN CORPUSCULAR VOLUME 91.2 fL (79-99); MONOCYTES # (AUTO) 1.5 K/uL (0.1-1.0); MONOCYTES % (AUTO) 8.6 % (3.0-13.0); NEUTROPHILS # (AUTO) 12.4 K/uL (1.8-7.7); NEUTROPHILS % (AUTO) 73.9 % (40.0-77.0); PLATELET COUNT (AUTO) 291 K/uL (130-400); RED BLOOD CELL COUNT(AUTO) 5.02 MIL/uL (4.00-5.50); RED CELL DISTRIBUTION WIDTH 13.3 % (11.0-15.5); WHITE BLOOD COUNT (AUTO) 16.8 K/uL (4.8-10.8)
--- NOTE | 2024-10-06 00:30 | NUR ---
PT WAS PLACED ON O2 VIA N/C @ 2 LPM
[2024-10-06 00:32] LABS: APPEARANCE,URINE CLEAR (CLEAR); BILIRUBIN,URINE NEGATIVE (NEGATIVE); COLOR,URINE YELLOW (YELLOW); GLUCOSE, URINE (UA) NEGATIVE (NEGATIVE); KETONES,URINE 5 mg/dL (NEGATIVE); LEUKOCYTE ESTERASE ,URINE 250 Leu/uL (NEGATIVE); NITRATE,URINE NEGATIVE (NEGATIVE); PROTEIN,URINE 30 mg/dL (NEGATIVE); UROBILINOGEN,URINE 0.2 mg/dL (0.2-1.0)
[2024-10-06 00:35] LABS: ADD UA MICROSCOPIC YES
[2024-10-06 00:36] LABS: CREATININE 0.9 mg/dL (0.5-1.0); POTASSIUM 3.4 mmol/L (3.5-5.1)
[2024-10-06 00:37] LABS: INFLUENZA TYPE A Negative For Type A (NEGATIVE); INFLUENZA TYPE B Negative For Type B (NEGATIVE)
[2024-10-06 00:37] LABS: BACTERIA,URINE FEW /HPF (None Seen); MUCUS,URINE FEW LPF (None Seen); SQUAMOUS EPITHELIAL CELL,UR FEW /HPF (0-2)
[2024-10-06] MEDS: 0.9%NACL 1000ML 1,000 ML IV SCH (00:38)
[2024-10-06] MEDS: cefTRIAXone 1G VIAL IVPB ONE (00:38)
[2024-10-06] MEDS: Solu-medROL 125MG VIAL IVP ONE (00:38)
[2024-10-06 00:42] LABS: SARS-CoV-2, RNA, NAAT NEGATIVE SARS CoV-2 (NEGATIVE)
[2024-10-06 01:04] LABS: ABG BASE EXCESS -3.3 mmol/L (-2.0-3.0); ABG HCO3 19.7 mmol/L (21.0-28.0); ABG OXYGEN SATURATION 98.3 % (94.0-98.0); ABG PCO2 30 mmHg (32-45); ABG PH 7.431 (7.350-7.450); PO2, ARTERIAL BG 113.5 mmHg (83.0-108.0); VENT MODE, BG RR 2L NC (ROOM AIR)
[2024-10-06] MEDS: IpraTROPium/alBUTERol SULFATE 3 ML SOLUTION IH ONE (01:06)
[2024-10-06 01:07] VITALS: PULSE 115; RESP 19
--- NOTE | 2024-10-06 01:32 | HMCIMG ---
CHEST 1VW HISTORY: Cough COMPARISON: 02/02/2024 FINDINGS: A frontal projection of the chest was obtained. There are bilateral pulmonary infiltrates suggestive of pulmonary vascular congestion with possible superimposed pneumonitis. The heart is borderline enlarged. Degenerative changes are seen. No evidence of aortic calcification is seen. IMPRESSION: 1. Bilateral pulmonary infiltrates are seen suggestive of pulmonary vascular congestion with possible superimposed pneumonitis.
[2024-10-06 01:34] VITALS: TEMP 100.3
[2024-10-06] MEDS: AZITHROMYCIN 500MG+NS 250ML 250 ML IV ONE (01:37)
--- NOTE | 2024-10-06 02:21 | ERN ---
ED Note History of Present Illness Stated Complaint: C/O COUGH, CHILLS, FEVER X 4 DAYS Chief Complaint: Cough Time Seen by MD: 23:52 Time Seen by Midlevel: 23:52 Dictation: The patient is a 49-year-old female with a history of pulmonary fibrosis, hyper tension, arthritis who presents to the emergency department with complaints of fever, chills, productive cough, shortness of breath onset four days ago. Patient denies any sore throat, vomiting or diarrhea, ear pain. Allergies: Coded Allergies: No Known Drug Allergies (Unverified Allergy, Unknown, 06/24/15) Home Meds Active Scripts Ketorolac Tromethamine (Ketorolac Tromethamine) 10 Mg Tablet, 10 MG PO BID for 5 Days, #10 TAB Prov:JONE TILLEY 07/07/24 Cephalexin Monohydrate (Keflex) 500 Mg Cap, 500 MG PO QID for 10 Days, #40 CAP 0 Refills Prov:BULL DEE Sr., MD 09/08/23 Oseltamivir Phosphate (Tamiflu) 75 Mg Cap, 75 MG PO BID, #9 CAP 0 Refills Prov:BULL DEE Sr., MD 09/08/23 Famotidine (Pepcid) 20 Mg Tablet, 20 MG PO BID, #60 TAB 2 Refills Prov:BULL DEE Sr., MD 09/08/23 Metoclopramide HCl (Reglan) 10 Mg Tablet, 10 MG PO QIDP PRN for NAUSEA, #20 TAB 2 Refills Prov:BULL DEE Sr., MD 09/08/23 Benzonatate (Tessalon Perles) 100 Mg Cap, 100 MG PO TID for cough, #30 CAP 0 Refills Prov:BULL DEE Sr., MD 09/08/23 Albuterol Sulfate (Albuterol Sulfate) 2.5 Mg/0.5 Ml Vial.neb, 2.5 MG IH Q6H for wheezing/sob, #20 INH 2 Refills Prov:BULL DEE Sr., MD 09/08/23 Albuterol Sulfate (Ventolin Hfa/Proventil Hfa/Proair Hfa) 90 Mcg Puff, 2 PUFF IH Q4H for WHEEZING, #1 INHALER 2 Refills Prov:BULL DEE Sr., MD 09/08/23 Doxycycline Hyclate (Doxycycline Hyclate) 100 Mg Capsule, 100 MG PO BID for 7 Days, #14 CAP Prov:KAYLA JEFFERS MD 10/15/22 Oseltamivir Phosphate (Tamiflu) 75 Mg Cap, 75 MG PO BID for 5 Days, #10 CAP Prov:KAYLA JEFFERS MD 10/15/22 Levofloxacin (Levaquin 750Mg Tabs) 750 Mg Tablet, 500 MG PO DAILY for 14 Days, #14 TAB Prov:MARA VILCHIS 04/06/21 Reported Medications Prednisone (Prednisone) 5 Mg Tablet, 5 MG PO DAILY, TAB 04/03/21 Azathioprine (Imuran) 50 Mg Tablet, 50 MG PO DAILY, TAB 04/03/21 Sulfasalazine (Sulfasalazine) 500 Mg Tablet, 1000 MG PO BID, TAB 04/03/21 Ferrous Sulfate (Ferrous Sulfate) 325 Mg Ectab, 325 MG PO DAILY, TAB.EC 04/03/21 Famotidine (Famotidine) 20 Mg Tablet, 20 MG PO BID, TAB 04/03/21 Ergocalciferol (Vitamin D2) (Vitamin D2) 50,000 Unit Capsule, 39248 UNITS PO QWEEK, #4 01/12/17 Past Medical History Past Medical History: Arthritis, Hypertension, Other Additional Past Medical Hx: PULMONARY FIBROSIS Surgical History: Hysterectomy Social History: Negative, Lives with family History: Not Applicable RN Note Reviewed/Agreed w/PFSH: Yes Review of System Dictation Constitutional: Negative for ,chills, and weight loss positive for fever Eyes: Negative for injury, pain,redness, and discharge ENT: Negative for injury,pain or swelling Cardiovascular: Negative for chest pain, palpitations, and edema Respiratory: Negative for and wheezing, positive for shortness of breath, cough Abdomen/GI: Negative for abdominal pain, nausea, vomiting, diarrhea, and constipation Back: Negative for injury and pain : Negative for injury, bleeding and discharge MS/Extremity: Negative for injury and deformity Skin: Negative for rash, and discoloration Neuro: Negative for headache, weakness, numbness, tingling, and seizure Psych: Negative for suicide ideation, homicidal ideation, and hallucinations Initial Vital Sign VS Vital Signs Date Time Temp Pulse Resp B/P (MAP) Pulse Ox O2 Delivery O2 Flow Rate FiO2 10/05/24 23:55 102.2 132 20 128/83 92 Room Air 10/06/24 01:12 1 24 Physical Exam Dictation Vital Signs reviewed General Appearance: Alert, oriented x 3, mildly distress, well developed, nourished. Head and Face: non-traumatic. Eyes: PERRL, pink conjunctivas, eyelid no trauma, anterior chamber with arcus senilis. Ears: Pinnas intact and no signs of trauma or erythema ear canals clear and no discharge TM no erythema Nose: No discharge, no bleeding. Oropharynx: Mouth normal, tongue pink. pharynx clear,no erythema, tonsils no exudates, no abscesses noted, mucous membrane moist Neck: Supple, non-tender, no thyromegaly, no masses, no JVD, no bruits Breast:Deferred Chest:No tenderness, no crepitus, no paradoxical movement, no retractions Lungs:Clear, well-ventilated, symmetric, no rales, + wheezing, no rhonchi, no stridor, good breath sounds bilaterally Heart: Regular rate, regular rhythm, no murmur, no gallops Vascular: no peripheral edema, Abdomen: Soft, positive bowel sounds, nondistended, no guarding, nontender, no rebound, no masses no hepatomegaly, no splenomegaly, no Vasquez's sign, no hernias. Rectal: Deferred Genital: Deferred Neurological: Normal speech, motor function intact, sensory function intact Musculoskeletal: Neck nontender, full range of motion, back nontender, full range of motion, Extremities: nontender, full range of motion Skin: Color pink, dry, no turgor, no rash, no lacerations, no abrasions, no contusions. Lymphatic: Deferred Results (Laboratory/Radiology) Laboratory/Radiology Laboratory Tests Test 10/06/24 00:00 10/06/24 00:04 10/06/24 00:10 10/06/24 01:02 White Blood Count 16.8 K/uL (4.8-10.8) H Red Blood Count 5.02 MIL/uL (4.00-5.50) Hemoglobin 14.6 g/dL (12.0-16.0) Hematocrit 45.8 % (36-48) Mean Corpuscular Volume 91.2 fL (79-99) Mean Corpuscular Hemoglobin 29.1 pg (27.0-33.0) Mean Corpuscular Hemoglobin Concent 31.9 g/dL (32.0-36.0) L Red Cell Distribution Width 13.3 % (11.0-15.5) Platelet Count 291 K/uL (130-400) Mean Platelet Volume 11.8 fL (7.5-10.5) H Immature Granulocyte % (Auto) 0.5 % (0-1) Neutrophils (%) (Auto) 73.9 % (40.0-77.0) Lymphocytes (%) (Auto) 12.2 % (21.0-51.0) L Monocytes (%) (Auto) 8.6 % (3.0-13.0) Eosinophils (%) (Auto) 4.1 % (0.0-8.0) Basophils (%) (Auto) 0.7 % (0.0-5.0) Neutrophils # (Auto) 12.4 K/uL (1.8-7.7) H Lymphocytes # (Auto) 2.1 K/uL (1.0-4.8) Monocytes # (Auto) 1.5 K/uL (0.1-1.0) H Eosinophils # (Auto) 0.69 K/uL (0.00-0.70) Basophils # (Auto) 0.11 K/uL (0.00-0.20) Absolute Immature Granulocyte (auto 0.09 K/uL (0-1) Nucleated Red Blood Cells 0.0 % (0.0-0.19) Sodium Level 138 mmol/L (136-145) Potassium Level 3.4 mmol/L (3.5-5.1) L Chloride Level 101 mmol/L (101-111) Carbon Dioxide Level 27 mmol/L (21-32) Blood Urea Nitrogen 7 mg/dL (7-18) Creatinine 0.9 mg/dL (0.5-1.0) Glomerular Filtration Rate Calc 79 mL/min (>90) Random Glucose 129 mg/dL (70-105) H Lactic Acid Level 2.0 mmol/L (0.8-2.5) Total Calcium 8.9 mg/dL (8.5-10.1) Total Creatine Kinase 18 U/L (21-232) L Troponin I High Sensitivity 9 ng/L (4-50) B-Type Natriuretic Peptide 57 pg/mL (0-100) Procalcitonin 0.06 ng/mL (0.05-0.5) Influenza Type A Antigen Negative For Type A Influenza Type B Antigen Negative For Type B SARS-CoV-2, RNA, NAAT NEGATIVE SARS CoV-2 Group A Streptococcus Rapid negative (NEGATIVE) Urine Color YELLOW (YELLOW) Urine Appearance CLEAR (CLEAR) Urine pH 6.0 (5.0-8.0) Urine Specific [place] 1.027 (1.001-1.031) Urine Protein 30 mg/dL (NEGATIVE) H Urine Glucose (UA) NEGATIVE mg/dL (NEGATIVE) Urine Ketones 5 mg/dL (NEGATIVE) H Urine Occult Blood +- (TRACE) (NEGATIVE) H Urine Nitrate NEGATIVE (NEGATIVE) Urine Bilirubin NEGATIVE mg/dL (NEGATIVE) Urine Urobilinogen 0.2 mg/dL (0.2-1.0) Urine Leukocyte Esterase 250 Christine/uL (NEGATIVE) H Urine RBC 2-5 /HPF (0-1) H Urine WBC 2-5 /HPF (0-1) H Urine Squamous Epithelial Cells FEW /HPF (0-2) Urine Bacteria FEW /HPF (None Seen) Blood Gas Specimen Type Arterial Arterial Blood pH 7.431 (7.350-7.450) Arterial Blood Partial Pressure CO2 30 mmHg (32-45) L Arterial Blood Partial Pressure O2 113.5 mmHg (83.0-108.0) H Arterial Blood HCO3 19.7 mmol/L (21.0-28.0) L Arterial Blood Oxygen Saturation 98.3 % (94.0-98.0) H Arterial Blood Base Excess -3.3 mmol/L (-2.0-3.0) L Blood Gas Temperature 37.0 CELSIUS (35.5-37.0) Blood Gas Flow-by 2.00 L/min (0.00-15.00) Blood Gas Vent Mode RR 2L NC (ROOM AIR) FiO2 28.0 % Blood Gas Specimen Comment RIRI GOLD REASON: COUGH ORDERING PHYSICIAN: AGUSTINA FULTON MD PROCEDURE: CXR1VW - CHEST 1VW CHEST 1VW HISTORY: Cough COMPARISON: 02/02/2024 FINDINGS: A frontal projection of the chest was obtained. There are bilateral pulmonary infiltrates suggestive of pulmonary vascular congestion with possible superimposed pneumonitis. The heart is borderline enlarged. Degenerative changes are seen. No evidence of aortic calcification is seen. IMPRESSION: 1. Bilateral pulmonary infiltrates are seen suggestive of pulmonary vascular congestion with possible superimposed pneumonitis. Labs Reviewed?: Yes EKG: (+) rhythm (Sinus tachycardia) EKG Comment: EKG 10/06/2024 0032 ventricular rate 124, regular rate and rhythm, sinus tachycardia, no STEMI ED Course ED Course Orders Procedure Category Date Status Time Covid Rna Naat LAB 10/05/24 Complete 23:53 Influenza Type A & B, LAB 10/05/24 Complete Rapid 23:53 Rapid (Group A Strep) LAB 10/05/24 Complete 23:53 Chest 1vw RAD 10/05/24 Resulted 23:53 Iv Insertion CPOE 10/06/24 Transmitted 00:01 Pulse Ox(Continuous) RT 10/06/24 Transmitted 00:01 Vital Signs Per CPOE 10/06/24 Transmitted Routine 00:01 12 Lead Ekg Tracing- EKG 10/06/24 Logged Technical 00:01 Cbc With Differential LAB 10/06/24 Complete 00:01 Blood Cult CANDACE 10/06/24 In Process 00:01 Urinalysis Profile LAB 10/06/24 Complete 00:01 Culture Urine CANDACE 10/06/24 In Process 00:01 Creatine Kinase, Total LAB 10/06/24 Complete 00:01 Troponin I High LAB 10/06/24 Complete Sensitivity 00:01 Lactic Acid LAB 10/06/24 Complete 00:01 Basic Metabolic Panel LAB 10/06/24 Complete 00:01 Acetaminophen 500mg PHA 10/06/24 Complete Tab (Tylenol 500mg T 00:30 Ipratropium/Albuterol PHA 10/06/24 Complete Neb (Duoneb) 00:30 Arterial Blood Gas RT 10/06/24 Transmitted 00:25 Ceftriaxone 1g Vial PHA 10/06/24 Complete (Rocephine 1g Inj) 00:30 Azithromycin 500mg+Ns PHA 10/06/24 In Process 250ml (Azithromyci 00:30 Procalcitonin LAB 10/06/24 Complete 00:25 Methylprednisolone PHA 10/06/24 Complete Succ 125mg (Solu-Medr 00:30 B-Type Natriuretic LAB 10/06/24 Complete Peptide 00:25 0.9%Nacl 1000ml (Ns PHA 10/06/24 In Process 1000ml) 00:30 Arterial Blood Gas LAB 10/06/24 Complete 01:02 Current Medications Medications (Trade) Dose Ordered Sig/Akua Route PRN Reason Start Time Stop Time Status Last Admin Dose Admin Acetaminophen (TYLenol 500MG TAB) 1,000 mg ONCE ONCE PO 10/06/24 00:30 10/06/24 00:31 DC 10/06/24 00:26 Albuterol (DUOneb) 1 UDVIAL ONCE ONCE IH 10/06/24 00:30 10/06/24 00:31 DC 10/06/24 01:06 Azithromycin 250 ml @ 125 mls/hr ONCE ONCE IV 10/06/24 00:30 10/06/24 02:29 10/06/24 01:37 Ceftriaxone Sodium (ROCEphine 1G INJ) 1 gm ONCE ONCE IVPB 10/06/24 00:30 10/06/24 00:31 DC 10/06/24 00:38 Methylprednisolone Sodium Succinate (Solu-medROL 125MG) 125 mg ONCE ONCE IVP 10/06/24 00:30 10/06/24 00:31 DC 10/06/24 00:38 Sodium Chloride 1,000 ml @ 150 mls/hr Q6H40M IV 10/06/24 00:30 11/05/24 00:29 10/06/24 00:38 Vital Signs Date Time Temp Pulse Resp B/P (MAP) Pulse Ox O2 Delivery O2 Flow Rate FiO2 10/06/24 02:04 110 20 96 Nasal Cannula* 1 10/06/24 01:29 100.2 118 20 94 Room Air* 0 21 10/06/24 01:12 118 20 97 Nasal Cannula* 1 10/06/24 01:07 115 19 10/05/24 23:55 102.2 132 20 128/83 92 Room Air Medical Decision Making MDM MDM: The patient is a 49-year-old female with a history of pulmonary fibrosis, hypertension, arthritis who presents to the emergency department with complaints of fever, chills, productive cough, shortness of breath onset four days ago. Patient denies any sore throat, vomiting or diarrhea, ear pain. CBC showed leukocytosis, no anemia, chemistry showed mild hypokalemia, negative troponin, lactic acid of 2.0, serology negative, urinalysis with positive leukocyte esterase, chest x-ray showed vascular congestion with superimposed pneumonitis. Patient treated with the antibiotics. Patient's initial O2 sats were 92% on room air and improved after respiratory treatments. Patient reports she does not take any oxygen at home but reports being on prednisone. Differential diagnosis: Pneumonia, sepsis, electrolyte imbalance, upper respiratory infection, ACS, pneumothorax Comorbidities: Pulmonary fibrosis, hypertension, arthritis Tests considered and not ordered secondary to shared decision making include: none Previous outside records reviewed: none Risk of complication and/or morbidity or mortality of patient management: The patient meets criteria for admission. Need for emergency major/minor surgery: No There are no social concerns with this patient. I independently interpreted the tests I ordered (labs, urinalysis, etc.). I discussed the case with the hospitalist for admission. Larissa who accepts admission. I discussed the case with the following specialists: none. Historian: [email or web address]. I independently interpreted imaging studies and EKGs that I ordered (US, CT, XR, EKG, etc.). External chart review: none. Medical management and examination interpretation discussions were had by me with other qualified healthcare professionals as indicated for the patient's care. DX & DISP Disposition: Inpatient Decision to Admit Date: Oct 06, 2024 Decision to Admit Time: 02:20 Departure Impression: Primary Impression: Respiratory distress Additional Impressions: Hypoxemia, Pneumonitis, History of pulmonary fibrosis, Sepsis, Cough, Fever, Leukocytosis, UTI (urinary tract infection) Condition: Stable Referrals: ANGELLA MOISE MD (PCP) I have reviewed the case, and I agree with, Diagnosis and Plan GRIFFIN GARCIA Oct 06, 2024 02:21
[2024-10-06] MEDS ORDERED: MAGNESIUM 2GM PREMIX 50ML 50 ML IV PRN (03:00)
[2024-10-06] MEDS ORDERED: guaiFENesin-DM 200/20MG 10ML PO PRN (03:00)
[2024-10-06] MEDS ORDERED: cefTRIAXone 1G VIAL 1 GM in 0.9%NACL 50ML 50 ML IV SCH (03:00)
[2024-10-06] MEDS ORDERED: acetaMINOPHEN 325 MG TAB PO PRN ×2 (03:00)
[2024-10-06] MEDS ORDERED: PoTASSium chloRIDE 20MEQ ER 20 MEQ ERTAB PO PRN (03:00)
[2024-10-06] MEDS ORDERED: ondanSETRON 4MG INJ IV PRN (03:00)
[2024-10-06] MEDS ORDERED: PoTASSium chl 10% ELIXIR 20MEQ 20 MEQ/15 ML UDCUP PO PRN (03:00)
[2024-10-06] MEDS ORDERED: PoTASSium chloRIDE 20MEQ/100ML 100 ML IV PRN (03:00)
--- NOTE | 2024-10-06 04:22 | HP ---
[facility] Date of Service: Oct 06, 2024 Time of Service: 04:04 PCP: Jarad Killian HISTORY OF PRESENT ILLNESS: This is a 49-year-old female with past medical history of pulmonary fibrosis, hypertension and rheumatoid arthritis who presents to the ED for complaints of fever, chills, productive cough, shortness of breaths which started four days ago and patient started having nausea , vomiting x 1 today and poor appetite . Patient states she has increased cough production thick and white in color. Patient denies sick contacts and recent travel. Upon ER arrival patient's vital signs temperature 102.2, heart rate 132 blood pressure 128/83 saturation 92% on room air. Seen and examined patient in the ER awake,alert ,coherent and ambulatory. Patient denies palpitation, chest pain, abdominal pain and diarrhea. Latest vital signs temperature 100.2, heart rate 86, blood pressure 142/64 saturation 94% 1 L nasal cannula. Labs: WBC 16.8, hemoglobin 14.6, hematocrit 45.8, platelet count 291. ABG pH 7.43, CO2 30, PO2 113.5, bicarb 19.7, PO2 98.3, base excess-3.3 taken at 2 L nasal cannula. Potassium 3.4, glucose 129 troponin nine BNP 57 lactic acid two procalcitonin 0.06. Urinalysis positive with urinary tract infection. Influenza a and B negative, SARs COVID negative rapid strep negative. Chest x-ray result revealed bilateral pulmonary infiltrates are seen suggestive of pulmonary vascular congestion with possible superimposed pneumonitis. While in the ER patient received Solu-Medrol 125 mg IV, azithromycin and Rocephin IV, DuoNeb treatment and Tylenol 1000 mg p.o. we will admit patient for further medical management. REVIEW OF SYSTEMS CONSTITUTIONAL: Complained of fever and chills Denies night sweats. No unintentional weight loss reported. NEUROLOGICAL: Denies headache, amaurosis fugax, motor weakness, sensory deficit, vertigo/spinning sensation, gait abnormalities, or tremors. ENT: No hearing loss, otalgia, otorrhea, rhinitis, rhinorrhea, hoarseness, or sore throat. CARDIOVASCULAR: Denies any exertional angina, dyspnea on exertion, orthopnea, paroxysmal nocturnal dyspnea, palpitations, life-threatening arrhythmias, claudication. PULMONARY: Complained of productive cough and shortness of breaths Denies hemoptysis, pleuritic chest pain. SLEEP: Denies morning headaches, daytime somnolence or napping. Denies difficulty falling asleep, staying asleep, waking from sleep. Denies knowledge of snoring. GASTROINTESTINAL: Complained of poor appetite Denies any type of dysphagia to either liquids or solids. Denies nausea, vomiting, pyrosis, early satiety, abdominal pain, diarrhea, constipation, or changes in stool consistency or caliber. Denies coffee-ground emesis, hematemesis, hematochezia, or melanotic stools. GENITOURINARY: Denies frequency, urgency, nocturia, hematuria or incontinence (Storage/Irritative symptoms.) Low urinary stream, straining to void, urinary intermittency or hesitancy, splitting of the voiding stream, terminal dribbling. ENDOCRINOLOGIC: Denies polyuria, polydipsia, polyphagia or heat/cold intolerances. HEMATOLOGIC: Denies thrombophilia/previous clots, or coagulopathy/bleeding disorders. ONCOLOGIC: Denies personal history of malignancy. DERMATOLOGIC: Denies rashes or pruritus. PSYCHIATRIC: Denies any suicidal or homicidal ideation. Denies hallucinations. PAST MEDICAL HISTORY: [ Pulmonary fibrosis, hypertension and rheumatoid arthritis ] PAST SURGICAL HISTORY: [ Hysterectomy] PAST SOCIAL HISTORY: [Patient lives with family. Patient denies alcohol tobacco and recreational drug use ] FAMILY HISTORY: [Hypertension ] Coded Allergies: No Known Drug Allergies (Unverified Allergy, Unknown, 06/24/15) PHYSICAL EXAM GENERAL APPEARANCE: The patient is awake, alert, and oriented, in no acute card iopulmonary distress. NEUROLOGICAL: Cranial nerves II-XII grossly intact. Motor is 5/5 in bilateral upper and lower extremities proximal to distal. No sensory deficits. HEENT: Face is symmetric. Pupils are equal and reactive. Extraocular movements are intact. NECK: Supple. No JVD. No thyromegaly. No submental, submandibular, pre- /postauricular, occipital or supraclavicular lymphadenopathy. CHEST: Normal chest expansion. No Telemetry. LUNGS: rhonchi on the lower bases per auscultation Absence of any rales, any wheezing. CARDIOVASCULAR: Regular. S1 and S2 normal. No appreciable rubs, murmurs or gallops. ABDOMEN: Soft, nontender, and nondistended. There is no rebound, voluntary guarding, or rigidity. : Deferred. No Chavis. EXTREMITIES: Non-edematous and not cyanotic. No clubbing. Good capillary refill. SKIN: No skin breakdown. Vital Sign (Last 24 Hours) 10/05/24 10/06/24 10/06/24 23:55 01:29 02:04 Temp 100.2 Pulse 110 Resp 20 B/P (MAP) 128/83 Pulse Ox 96 O2 Delivery Nasal Cannula* O2 Flow Rate 1 FiO2 24 LABS: Laboratory: Test 10/06/24 01:02 10/06/24 00:10 10/06/24 00:04 10/06/24 00:00 Range/Units Blood Gas Specimen Type Arterial Arterial Blood pH 7.431 7.350-7.450 Arterial Blood Partial Pressure CO2 30 L 32-45 mmHg Arterial Blood Partial Pressure O2 113.5 H 83.0-108.0 mmHg Arterial Blood HCO3 19.7 L 21.0-28.0 mmol/L Arterial Blood Oxygen Saturation 98.3 H 94.0-98.0 % Arterial Blood Base Excess -3.3 L -2.0-3.0 mmol/L Blood Gas Temperature 37.0 35.5-37.0 CELSIUS Blood Gas Flow-by 2.00 0.00-15.00 L/min Blood Gas Vent Mode RR 2L NC ROOM AIR FiO2 28.0 % Blood Gas Specimen Comment RIRI RN Urine Color YELLOW YELLOW Urine Appearance CLEAR CLEAR Urine pH 6.0 5.0-8.0 Urine Specific Cowley 1.027 1.001-1.031 Urine Protein 30 H NEGATIVE mg/dL Urine Glucose (UA) NEGATIVE NEGATIVE mg/dL Urine Ketones 5 H NEGATIVE mg/dL Urine Occult Blood +- (TRACE) H NEGATIVE Urine Nitrate NEGATIVE NEGATIVE Urine Bilirubin NEGATIVE NEGATIVE mg/dL Urine Urobilinogen 0.2 0.2-1.0 mg/dL Urine Leukocyte Esterase 250 H NEGATIVE Christine/uL Urine RBC 2-5 H 0-1 /HPF Urine WBC 2-5 H 0-1 /HPF Urine Squamous Epithelial Cells FEW 0-2 /HPF Urine Bacteria FEW None Seen /HPF Influenza Type A Antigen Negative For Type A NEGATIVE Influenza Type B Antigen Negative For Type B NEGATIVE SARS-CoV-2, RNA, NAAT NEGATIVE SARS CoV-2 NEGATIVE Group A Streptococcus Rapid negative NEGATIVE White Blood Count 16.8 H 4.8-10.8 K/uL Red Blood Count 5.02 4.00-5.50 MIL/uL Hemoglobin 14.6 12.0-16.0 g/dL Hematocrit 45.8 36-48 % Mean Corpuscular Volume 91.2 79-99 fL Mean Corpuscular Hemoglobin 29.1 27.0-33.0 pg Mean Corpuscular Hemoglobin Concent 31.9 L 32.0-36.0 g/dL Red Cell Distribution Width 13.3 11.0-15.5 % Platelet Count 291 130-400 K/uL Mean Platelet Volume 11.8 H 7.5-10.5 fL Immature Granulocyte % (Auto) 0.5 0-1 % Neutrophils (%) (Auto) 73.9 40.0-77.0 % Lymphocytes (%) (Auto) 12.2 L 21.0-51.0 % Monocytes (%) (Auto) 8.6 3.0-13.0 % Eosinophils (%) (Auto) 4.1 0.0-8.0 % Basophils (%) (Auto) 0.7 0.0-5.0 % Neutrophils # (Auto) 12.4 H 1.8-7.7 K/uL Lymphocytes # (Auto) 2.1 1.0-4.8 K/uL Monocytes # (Auto) 1.5 H 0.1-1.0 K/uL Eosinophils # (Auto) 0.69 0.00-0.70 K/uL Basophils # (Auto) 0.11 0.00-0.20 K/uL Absolute Immature Granulocyte (auto 0.09 0-1 K/uL Nucleated Red Blood Cells 0.0 0.0-0.19 % Sodium Level 138 136-145 mmol/L Potassium Level 3.4 L 3.5-5.1 mmol/L Chloride Level 101 101-111 mmol/L Carbon Dioxide Level 27 21-32 mmol/L Blood Urea Nitrogen 7 7-18 mg/dL Creatinine 0.9 0.5-1.0 mg/dL Glomerular Filtration Rate Calc 79 >90 mL/min Random Glucose 129 H 70-105 mg/dL Lactic Acid Level 2.0 0.8-2.5 mmol/L Total Calcium 8.9 8.5-10.1 mg/dL Total Creatine Kinase 18 L 21-232 U/L Troponin I High Sensitivity 9 4-50 ng/L B-Type Natriuretic Peptide 57 0-100 pg/mL Procalcitonin 0.06 0.05-0.5 ng/mL Current Medications Medications (Trade) Dose Ordered Sig/Akua Route PRN Reason Start Time Stop Time Status Last Admin Dose Admin Acetaminophen (TYLenol 325MG TAB) 650 mg Q4H PRN PO MILD PAIN (1-3) 10/06/24 03:00 11/05/24 02:59 Acetaminophen (TYLenol 325MG TAB) 650 mg Q6H PRN PO TEMPERATURE GREATER THAN 101.5 10/06/24 03:00 11/05/24 02:59 Azithromycin 250 ml @ 250 mls/hr Q24H IV 10/07/24 03:00 10/17/24 02:59 Ceftriaxone Sodium 1 gm/ Sodium Chloride 50 ml @ 100 mls/hr Q24H IV 10/06/24 03:00 10/06/24 02:59 DC Ceftriaxone Sodium (ROCEphine 1G INJ) 1 gm Q24H IVPB 10/07/24 00:30 10/17/24 00:29 Famotidine (Pepcid 20mg Tab) 20 mg BID PO 10/06/24 09:00 11/05/24 08:59 Guaifenesin/ Dextromethorphan (RobiTUSSin DM 200/20MG 10ML) 10 ml Q4H PRN PO COUGH 10/06/24 03:00 11/05/24 02:59 Magnesium Sulfate 50 ml @ 0 mls/hr PROTOCOL PRN IV OTHER [SEE ORDER COMMENTS] 10/06/24 03:00 11/05/24 02:59 Ondansetron HCl (zoFRAN 4MG INJ) 4 mg Q6H PRN IV NAUSEA/VOMITING 10/06/24 03:00 11/05/24 02:59 Potassium Chloride 100 ml @ 100 mls/hr AD PRN IV POTASSIUM PROTOCOL 10/06/24 03:00 11/05/24 02:59 Potassium Chloride (K-Dur/Klor-Con 20meq) 20 meq AD PRN PO POTASSIUM PROTOCOL 10/06/24 03:00 11/05/24 02:59 Potassium Chloride (KCl 10% Elixir 20meq/15ml) 20 meq AD PRN PO POTASSIUM PROTOCOL 10/06/24 03:00 11/05/24 02:59 Sodium Chloride 1,000 ml @ 150 mls/hr Q6H40M IV 10/06/24 00:30 11/05/24 00:29 10/06/24 00:38 150 MLS/HR DIAGNOSTICS / RADIOLOGY: [ ] ASSESSMENT: SIRS with organ dysfunction POA Suspected community-acquired pneumonia POA Acute urinary tract infection POA Acute leukocytosis POA Hypokalemia POA Hyperglycemia POA Pulmonary fibrosis POA PLAN: We will admit patient in medical telemetry We will start on heart healthy diet We will start patient on Rocephin and azithromycin IV for broad-spectrum coverage We will start on Famotidine 20 mg p.o. bid for GI prophylaxis We will replace electrolytes as needed per protocol We will add prn medication for fever,pain,cough and nausea We will reconcile home meds once medlist available We will seek pulmonology consultation We will request labs in am Further orders to follow depending on above results Case discussed with attending physician and came up with above treatment and plan of care. ADVANCED CARE PLANNING 1. Which of the following were discussed? Hospice Care - No Therapeutic options - Yes Advance Directives - No Other discussions - 2. Discussed with who? Patient 3. Voluntary nature of this service was explained to the patient? Yes 4. Amount of time spent - ____20___ 5. Reviewed by Physician? (if this service was performed by NPP) Yes Patient seen and examined by me. Agree with note by REIMBURSEMENT SPECIALIST SEE ADDITIONAL ORDERS PER CHART DISCUSSED WITH NURSING STAFF JEROMY CHARLES Oct 06, 2024 04:22
--- NOTE | 2024-10-06 06:32 | EKG ---
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 : 1975 Requested By: AGUSTINA FULTON Order Number: [id number] Reading MD: Jan Dickey Measurements Intervals [place] Rate: 124 P: 24 MT: 147 QRS: -61 QRSD: 83 T: 13 QT: 301 QTc: 433 Interpretive Statements Sinus tachycardia Left anterior fascicular block Anterior Q waves, HI vs possibly due to LVH Compared to ECG 02/02/2024 14:20:01 Left anterior fascicular block now present Left ventricular hypertrophy now present Q waves now present Sinus rhythm no longer present Electronically Signed On 10-06-2024 20:54:14 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
[2024-10-06 07:08] LABS: BASOPHILS # (AUTO) 0.04 K/uL (0.00-0.20); BASOPHILS % (AUTO) 0.3 % (0.0-5.0); EOSINOPHILS # (AUTO) 0.01 K/uL (0.00-0.70); EOSINOPHILS % (AUTO) 0.1 % (0.0-8.0); HEMATOCRIT 40.5 % (36-48); LYMPHOCYTES # (AUTO) 0.7 K/uL (1.0-4.8); LYMPHOCYTES % (AUTO) 5.5 % (21.0-51.0); MEAN CORPUSCULAR HEMOGLOBIN 29.2 pg (27.0-33.0); MEAN CORPUSCULAR HGB CONC 31.9 g/dL (32.0-36.0); MEAN CORPUSCULAR VOLUME 91.6 fL (79-99); MONOCYTES # (AUTO) 0.1 K/uL (0.1-1.0); MONOCYTES % (AUTO) 0.7 % (3.0-13.0); NEUTROPHILS # (AUTO) 11.2 K/uL (1.8-7.7); NEUTROPHILS % (AUTO) 92.6 % (40.0-77.0); PLATELET COUNT (AUTO) 233 K/uL (130-400); RED BLOOD CELL COUNT(AUTO) 4.42 MIL/uL (4.00-5.50); RED CELL DISTRIBUTION WIDTH 13.2 % (11.0-15.5); WHITE BLOOD COUNT (AUTO) 12.1 K/uL (4.8-10.8)
[2024-10-06 07:35] LABS: HEMOGLOBIN A1C 5.4 % (4.0-6.0)
[2024-10-06 07:38] LABS: ALBUMIN 2.3 g/dL (3.5-5.0); BILIRUBIN,TOTAL 0.3 mg/dL (0.2-1.0); CREATININE 0.7 mg/dL (0.5-1.0); POTASSIUM 3.7 mmol/L (3.5-5.1); TOTAL PROTEIN, SERUM 7.3 g/dL (6.0-8.3)
[2024-10-06] MEDS: FAMOTIDINE 20MG TAB PO SCH (08:42)
[2024-10-06] MEDS ORDERED: IOHEXOL 350 MG/ML 100ML INFUS..BTL IV ONE (09:42)
--- NOTE | 2024-10-06 10:25 | HMCIMG ---
CT CHEST PE PROTOCOL WWO CONT HISTORY: Elevated d-dimer COMPARISON: None TECHNIQUE: CT angiography of the chest was performed. The study was performed using angiographic technique with maximum intensity projection reconstruction images. Patient was given 100 cc of Omnipaque through intravenous route. FINDINGS: No CT evidence of filling defect is seen to suggest pulmonary embolus. No CT evidence of aortic dissection is seen. There are bilateral pulmonary infiltrates. Mild COPD changes are seen. No CT evidence of pleural effusion or pericardial effusion is seen. The heart is enlarged. No evidence of adrenal mass is seen. Degenerative changes of the spine are noted. There is complex cystic mass in the posterior aspect of the right hepatic lobe measuring 7 x 5 cm. IMPRESSION: 1. No CT evidence of acute pulmonary embolus is seen. Bilateral pulmonary infiltrates. There is complex cystic mass in the posterior aspect of the right hepatic lobe measuring [address] was performed with one or more following dose reduction techniques: automated exposure control, adjustment of the mA and kv according to patient's size, or use of a iterative reconstruction technique.
--- NOTE | 2024-10-06 10:30 | CONS ---
[facility] CONSULTATION NOTE Date Patient Seen: Oct 06, 2024 Time of Visit: 10:23 Supervising Physician: Dr Drew Reason for Consultation: acute hypoxemic resp failure Primary Care Physician: [ ] Outpatient Specialists: [Dr Darryl Lux Inpatient Consults: BIS PROBLEM LIST: Acute hypoxemic respiratory failure Suspected community-acquired pneumonia Pulmonary fibrosis exacerbation Rheumatiod arthritis Essential Hypertension Plan Summary: Supplemental oxygen as needed Duo nebs q.4 hours Continue antibiotics Obtain sputum culture Obtain CT of the chest 6 minute walk test for home O2 eval prior to discharge Outpatient follow up with Dr. Darryl Lux HPI: Mrs. Vanessa Gandara is a 49 year old female with a past medical history of pulmonary fibrosis, rheumatoid arthritis, hypertension presents to the emergency room with a chief complaint of respiratory failure with an onset about5 days. 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 Patient reports she started having symptoms of cough, productive phlegm and low-grade fevers. Patient reports her shortness of breath progressively worsened and once she was not able to ambulate without dyspnea she became fearful when came in for further evaluation. Patient had a chest x-ray which showed bilateral pulmonary infiltrates suggestive of pulmonary vascular congestion with possible superimposed pneumonitis and for this reason we are consulted. PAST MEDICAL HX: see above PAST SURGICAL HX: noncontributory SOCIAL HISTORY: No tobacco, ETOH, or illicit drug use Coded Allergies: No Known Drug Allergies (Unverified Allergy, Unknown, 06/24/15) REVIEW OF SYSTEMS: 12 point ROS reviewed with patient. Pertinent positives mentioned above. Otherwise negative. PHYSICAL EXAM: GENERAL: alert, weak, awake oriented x 3 HEENT: EOMI, Sclera non icteric, moist mucosa NECK: Supple, no JVD, trachea midline LUNGS: Clear breath sounds bilaterally. No wheezes HEART: Regular rate and rhythm. Normal S1 and S2, without murmurs ABD: Abdomen soft, nontender. Bowel sounds present EXT: No clubbing cyanosis or edema NEURO: Alert and oriented to person, follows commands Vital Signs (last 8hr) Date Time Temp Pulse Resp B/P (MAP) Pulse Ox O2 Delivery O2 Flow Rate FiO2 10/06/24 07:47 98.8 70 20 123/72 98 Nasal Cannula* 11 1310/06/24 05:36 95 Nasal Cannula* 1 10/06/24 05:35 90 20 136/76 92 Room Air* 0 21 10/06/24 04:07 98.8 90 18 132/75 94 Room Air* 0 21 10/06/24 04:00 86 18 142/64 94 Nasal Cannula* 1 24 LABS: Hematology Labs: Test 10/06/24 06:45 Range/Units White Blood Count 12.1 #H 4.8-10.8 K/uL Red Blood Count 4.42 4.00-5.50 MIL/uL Hemoglobin 12.9 12.0-16.0 g/dL Hematocrit 40.5 36-48 % Mean Corpuscular Volume 91.6 79-99 fL Mean Corpuscular Hemoglobin 29.2 27.0-33.0 pg Mean Corpuscular Hemoglobin Concent 31.9 L 32.0-36.0 g/dL Red Cell Distribution Width 13.2 11.0-15.5 % Platelet Count 233 130-400 K/uL Mean Platelet Volume 12.1 H 7.5-10.5 fL Immature Granulocyte % (Auto) 0.8 0-1 % Neutrophils (%) (Auto) 92.6 H 40.0-77.0 % Lymphocytes (%) (Auto) 5.5 L 21.0-51.0 % Monocytes (%) (Auto) 0.7 L 3.0-13.0 % Eosinophils (%) (Auto) 0.1 0.0-8.0 % Basophils (%) (Auto) 0.3 0.0-5.0 % Neutrophils # (Auto) 11.2 H 1.8-7.7 K/uL Lymphocytes # (Auto) 0.7 L 1.0-4.8 K/uL Monocytes # (Auto) 0.1 0.1-1.0 K/uL Eosinophils # (Auto) 0.01 0.00-0.70 K/uL Basophils # (Auto) 0.04 0.00-0.20 K/uL Absolute Immature Granulocyte (auto 0.10 0-1 K/uL Nucleated Red Blood Cells 0.0 0.0-0.19 % White Cell Morphology Comment See comments Erythrocyte Sedimentation Rate 95 H 0-20 MM/HR Chemistry Labs: Test 10/06/24 06:45 10/06/24 00:00 Range/Units Sodium Level 139 136-145 mmol/L Potassium Level 3.7 3.5-5.1 mmol/L Chloride Level 104 101-111 mmol/L Carbon Dioxide Level 26 21-32 mmol/L Blood Urea Nitrogen 8 7-18 mg/dL Creatinine 0.7 0.5-1.0 mg/dL Glomerular Filtration Rate Calc 107 >90 mL/min Random Glucose 186 H 70-105 mg/dL Hemoglobin A1c 5.4 4.0-6.0 % Estimated Average Glucose (eAG) 108 70-126 mg/dL Total Calcium 9.0 8.5-10.1 mg/dL Magnesium Level 2.00 1.80-2.40 mg/dL Total Bilirubin 0.3 0.2-1.0 mg/dL Aspartate Amino Transf (AST/SGOT) 31 10-37 U/L Alanine Aminotransferase (ALT/SGPT) 24 12-78 U/L Alkaline Phosphatase 111 50-136 U/L B-Type Natriuretic Peptide 42 0-100 pg/mL Total Protein 7.3 6.0-8.3 g/dL Albumin 2.3 L 3.5-5.0 g/dL Lactic Acid Level 2.0 0.8-2.5 mmol/L Total Creatine Kinase 18 L 21-232 U/L Troponin I High Sensitivity 9 4-50 ng/L Procalcitonin 0.06 0.05-0.5 ng/mL Coagulation Labs: Test 10/06/24 06:45 Range/Units D-Dimer Quantitative (PE/DVT) 813 *H 0-500 ng/mL DIAGNOSTICS / RADIOLOGY RESULTS: PATIENT: VANESSA GANDARA MR#: [id number] : 1975 SEX: F AGE: 49 LOCATION: [facility] ORDER 54 STATUS: [facility] REPORT#: [id number] SERVICE 52 REASON: COUGH ORDERING PHYSICIAN: AGUSTINA FULTON MD PROCEDURE: CXR1VW - CHEST 1VW CHEST 1VW HISTORY: Cough COMPARISON: 02/02/2024 FINDINGS: A frontal projection of the chest was obtained. There are bilateral pulmonary infiltrates suggestive of pulmonary vascular congestion with possible superimposed pneumonitis. The heart is borderline enlarged. Degenerative changes are seen. No evidence of aortic calcification is seen. IMPRESSION: 1. Bilateral pulmonary infiltrates are seen suggestive of pulmonary vascular congestion with possible superimposed pneumonitis. DICTATED BY: TYRELL CARRASQUILLO MD DATE: 10/06/24125 ELECTRONICALLY SIGNED BY: TYRELL CARRASQUILLO MD DATE: 10/06/24131 PLAN NEURO: Minimize central acting medications as possible. Maintain fall precautions, adequate lighting during the day PULMONARY: Supplemental 02 as needed. Maintain aspiration precautions at all times Duo nebs as needed No need for steroids at this time Continue antibiotics Obtain CT of the chest Outpatient follow up in Pulmonary Clinic 6 minute walk test prior to discharge CARDIOVASCULAR: Follow hemodynamics. Vital signs per facility protocol GI & NUTRITION: Continue with nutritional support. Continue stool softeners and laxatives as needed. KIDNEYS & ELECTROLYTES: Strict monitoring of intake, output and overall fluid balance. Avoid nephrotoxic medications to the extent possible. Medications to be dosed according to renal function. Monitor electrolytes and replace as needed ENDOCRINE: Maintain blood glucose between 100-180 at all times. Hypoglycemia protocol in place INFECTIOUS DISEASE: Trend temperature, WBC and procalcitonin level Follow cultures, deescalate antibiotics as soon as possible. Panculture if new onset fever ONCOLOGY/HEMATOLOGY/COAGULATION: Monitor for s/s of bleeding Monitor hemoglobin, coagulation studies as needed SKIN: Pressure ulcer prevention per facility protocol Specialty mattress ORTHO/REHAB: Continue PT/OT Prophylaxis: Continue GI and DVT prophylaxis Code Status: Full Resuscitation Disposition: As per attending Other: Total patient care time exceeds 35 minutes excluding all procedures. ATTESTATION BY PHYSICIAN I reviewed the documentation, medical decision making, and treatment plan as noted by the mid-level provider above. I agree with the findings and plan of care. Robert Drew MD, ECTOR N NP Oct 06, 2024 10:30
[2024-10-06] MEDS ORDERED: hydrALAZine 20MG/ML VIAL IV PRN (11:00)
[2024-10-06] MEDS: amLODIPine 5 MG TAB PO SCH (11:50)
[2024-10-06] MEDS: predniSONE 5 MG TABLET PO SCH (11:50)
[2024-10-06] MEDS: ASPIRIN 81 MG EC TAB PO SCH (11:50)
[2024-10-06] MEDS: metOPROLol sucCINATE 50 MG TAB.SR.24H PO SCH (11:50)
[2024-10-06] MEDS: LoSARTan 50 MG TABLET PO SCH (11:50)
[2024-10-06] MEDS: MYCOPHENOLATE MOFETIL 250 MG CAPSULE PO SCH (11:51)
[2024-10-06] MEDS ORDERED: LEFL20TA22 PO (12:03)
[2024-10-06] MEDS ORDERED: BENZONATATE 100 MG CAPSULE PO PRN (14:30)
[2024-10-06] MEDS: SODIUM CHLORIDE 3% FOR INHALATION 4 ML/AMP VIAL.NEB IH ONE ×2 (17:08→19:01)
[2024-10-06 18:42] VITALS: BP 149/72; PULSE 77; RESP 18; TEMP 98.1; O2SAT 95
--- NOTE | 2024-10-06 20:25 | NUR ---
TRANSFER CALL PLACED TO [facility] [employer] TO INITIATE TRANSFER FOR MED/TELE PT. NEEDING BED PLACEMENT
--- NOTE | 2024-10-06 20:40 | NUR ---
TRANSFER PT. ACCEPTED BY DR. POLO SCHMITT FOR TRANSFER TO [facility] ROOM 529. REPORT: [id number]
--- NOTE | 2024-10-06 21:17 | NUR ---
[facility] CALLED FOR TRANSPORT
--- NOTE | 2024-10-06 21:58 | NUR ---
CALLED [facility] AND GAVE REPORT TO JANKI. PATIENT BEING TRANSFERED TO ROOM 529.
[2024-10-07] MEDS: cefTRIAXone 1G VIAL IVPB SCH (00:30)
[2024-10-07] MEDS ORDERED: AZITHROMYCIN 500MG+NS 250ML 250 ML IV SCH (03:00)
--- NOTE | 2024-10-07 04:28 | CONS ---
DATE OF SERVICE: 10/06/2024 INFECTIOUS DISEASE CONSULTATION NOTE REQUESTING PHYSICIAN: Dr. Spike Loco. REASON FOR CONSULTATION: Sepsis, on antibiotic management. HISTORY OF PRESENT ILLNESS: This is a 49-year-old female with history of pulmonary fibrosis, hypertension, obesity and rheumatoid arthritis, who presented to the hospital with cough, fever and chills. The patient's symptoms started four days prior to presentation. T-max in the emergency room was 102.2. CT chest has been done, which shows possible cystic mass involving the right hepatic lobe. The patient's x-ray showed bilateral infiltrates. No evidence of pulmonary embolism. The patient's WBC of sepsis. The patient is on multiple immunosuppressive agents, which include mycophenolate, prednisone and azathioprine. Denies sore throat or rhinorrhea. No dysuria, no frequency. PAST MEDICAL HISTORY: * Pulmonary fibrosis. * Hypertension. * Rheumatoid arthritis. * Obesity. PAST SURGICAL HISTORY: Hysterectomy. ALLERGIES: No known drug allergy. CURRENT MEDICATIONS: Include: * Prednisone. * Mycophenolate. * Azithromycin. * Ceftriaxone. * Tylenol. SOCIAL HISTORY: Denies alcohol, tobacco or illicit drug use. FAMILY HISTORY: Noncontributory. REVIEW OF SYSTEMS: Greater than 10 systems were reviewed, negative except as documented above. PHYSICAL EXAMINATION: GENERAL: Young female, awake. VITAL SIGNS: Temperature 98.1, pulse 89, respiratory rate 20 and BP 146/68. EYES: No icterus. Pupils are equal and reactive. HENT: No oral thrush seen. Moist oral mucosa. NECK: Supple. No JVD or thyromegaly. LUNGS: Crackles bilaterally. No rhonchi. CARDIOVASCULAR: S1, S2 regular. No murmur heard. ABDOMEN: Obese. Soft. Nontender. Bowel sounds are present. CENTRAL NERVOUS SYSTEM: Awake, alert and oriented x 3. No focal deficits. SKIN: No rashes. No itchiness. LYMPHATIC: No peripheral lymphadenopathy. BACK: No deformity. No pressure ulcer. MUSCULOSKELETAL: No joint swelling, erythema or tenderness. LABORATORY DATA: Sodium 141, potassium 3.0, BUN 9 and creatinine 1.0. WBC 10.0, hemoglobin 10.2 and platelets 160. RADIOLOGY: Chest x-ray unremarkable. CT chest shows bilateral infiltrate. No pulmonary embolism. There is right hepatic lobe cystic mass measuring 7 cm x 5 cm. ASSESSMENT: The patient is a 49-year-old female presenting with fever and cough. CURRENT PROBLEMS: Include: * Sepsis. * Pneumonia. * Underlying immunosuppression. * Hepatic mass. * Obesity. * Hypertension. PLAN: * Continue ceftriaxone. * Continue azithromycin. * Follow up cultures. * Continue pain management. * Obtain sputum culture. * Monitor electrolytes. * The patient will be followed up closely. Thank you for allowing me to participate in the care of this patient. TID: [id number] RECEIPT: [id number]
== END 2024-10-07 01:00 | disposition short-term general hospital (02) | DRG 871 ==
LOC: EDH 23:49 → EDHIP 10-06 02:33
PROVIDERS: ADMIT Internal Medicine; ATTEND Internal Medicine
DX: A41.9 Sepsis, unspecified organism (principal); J18.9 Pneumonia, unspecified organism; J96.01 Acute respiratory failure with hypoxia; D84.9 Immunodeficiency, unspecified; N39.0 Urinary tract infection, site not specified; R73.9 Hyperglycemia, unspecified; E66.9 Obesity, unspecified; E87.6 Hypokalemia; I10 Essential (primary) hypertension; Z82.49 Family history of ischemic heart disease and other diseases of the circulatory system; Z90.710 Acquired absence of both cervix and uterus
CPT/HCPCS: 36415; 36600; 71045; 71270; 80048; 80053; 81001; 82550; 82803; 83036; 83605; 83735; 83880; 84145; 84484; 85025; 85378; 85651; 87040; 87071; 87086; 87186; 87205; 87635; 87804; 87880; 93005; 94640; G0378; J0456; J0696; J2919; J7030; J7512; J7517; Q9967

== ENCOUNTER 2025-05-24 16:15 | Emergency (ER) | payer BC ==
[~2025-05-24] VITALS: Ht 154.9 cm; Wt 81.6 kg
[~2025-05-24 16:15] MED LIST changes: +LEFL20TA22 PO
--- NOTE | 2025-05-24 17:06 | ERN ---
ED Note History of Present Illness Stated Complaint: WOUND CHECK RLE Chief Complaint: Wound Check Time Seen by MD: 16:48 Time Seen by Midlevel: 16:49 Dictation: 49-year-old female presents to the emergency department due to reported having pain and a wound to the right ankle that began 2 weeks ago. She states that she might have been bitten by a spider but was able to confirm it. However, she states that she did have the same presentation of the left ankle which resolved without complications. At this time, she is concerned that there is a blistering formation along with some mild drainage. There is no report of any fever or chills associated with this. Patient states that her level of discomfort is a 7/10. Upon initial evaluation, the patient presents mildly uncomfortable looking. Allergies: Coded Allergies: No Known Drug Allergies (Unverified Allergy, Unknown, 06/24/15) Emergency Care [employer]: None Home Meds Active Scripts Ketorolac Tromethamine (Ketorolac Tromethamine) 10 Mg Tablet, 10 MG PO BID for 5 Days, #10 TAB Prov:JONE TILLEY 07/07/24 Cephalexin Monohydrate (Keflex) 500 Mg Cap, 500 MG PO QID for 10 Days, #40 CAP 0 Refills Prov:BULL DEE Sr., MD 09/08/23 Oseltamivir Phosphate (Tamiflu) 75 Mg Cap, 75 MG PO BID, #9 CAP 0 Refills Prov:BULL DEE Sr., MD 09/08/23 Famotidine (Pepcid) 20 Mg Tablet, 20 MG PO BID, #60 TAB 2 Refills Prov:BULL DEE Sr., MD 09/08/23 Metoclopramide HCl (Reglan) 10 Mg Tablet, 10 MG PO QIDP PRN for NAUSEA, #20 TAB 2 Refills Prov:BULL DEE Sr., MD 09/08/23 Benzonatate (Tessalon Perles) 100 Mg Cap, 100 MG PO TID for cough, #30 CAP 0 Refills Prov:BULL DEE Sr., MD 09/08/23 Albuterol Sulfate (Albuterol Sulfate) 2.5 Mg/0.5 Ml Vial.neb, 2.5 MG IH Q6H for wheezing/sob, #20 INH 2 Refills Prov:BULL DEE Sr., MD 09/08/23 Albuterol Sulfate (Ventolin Hfa/Proventil Hfa/Proair Hfa) 90 Mcg Puff, 2 PUFF IH Q4H for WHEEZING, #1 INHALER 2 Refills Prov:BULL DEE Sr., MD 09/08/23 Doxycycline Hyclate (Doxycycline Hyclate) 100 Mg Capsule, 100 MG PO BID for 7 Days, #14 CAP Prov:KAYLA JEFFERS MD 10/15/22 Oseltamivir Phosphate (Tamiflu) 75 Mg Cap, 75 MG PO BID for 5 Days, #10 CAP Prov:KAYLA JEFFRES MD 10/15/22 Levofloxacin (Levaquin 750Mg Tabs) 750 Mg Tablet, 500 MG PO DAILY for 14 Days, #14 TAB Prov:MARA VILCHIS 04/06/21 Reported Medications Leflunomide (Leflunomide) 20 Mg Tablet, 1 TAB PO DAILY for 30 Days, #30 TAB 0 Refills 10/06/24 Prednisone (Prednisone) 5 Mg Tablet, 5 MG PO DAILY, TAB 04/03/21 Azathioprine (Imuran) 50 Mg Tablet, 50 MG PO DAILY, TAB 04/03/21 Sulfasalazine (Sulfasalazine) 500 Mg Tablet, 1000 MG PO BID, TAB 04/03/21 Ferrous Sulfate (Ferrous Sulfate) 325 Mg Ectab, 325 MG PO DAILY, TAB.EC 04/03/21 Famotidine (Famotidine) 20 Mg Tablet, 20 MG PO BID, TAB 04/03/21 Ergocalciferol (Vitamin D2) (Vitamin D2) 50,000 Unit Capsule, 49161 UNITS PO QWEEK, #4 01/12/17 Past Medical History Past Medical History: Arthritis, Hypertension, Other Additional Past Medical Hx: PULMONARY FIBROSIS Surgical History: Hysterectomy PSYCH History: no pertinent psych hx Social History: Negative, Lives with family History: Not Applicable RN Note Reviewed/Agreed w/PFSH: Yes Review of System Dictation Skin: Wound right ankle Initial Vital Sign VS Vital Signs Date Time Temp Pulse Resp B/P (MAP) Pulse Ox O2 Delivery O2 Flow Rate FiO2 05/24/25 16:17 98.1 79 16 131/81 96 Room Air 0 Physical Exam Dictation General: awake, alert, NAD Head/Face: Normocephalic, atraumatic Eyes: PERRL, EOMI ENT: Oral mucosa moist Neck: Trachea midline, supple Cardiovascular: RRR, no edema Respiratory: Symmetrical, non-labored Abdomen: Soft, non-tender, non-distended, no guarding. Skin: Warm, dry, to blister type formations with erythema, warmth and serosa nguineous drainage noted to the lateral portion of the right ankle. MS/Extremity: Pulses equal, no cyanosis, neurovascular intact, FROM Neuro: COAx4, GCS 15, steady gait, Psych: Normal behavior, mood, and affect normal Results (Laboratory/Radiology) Laboratory/Radiology Laboratory Tests Test 05/24/25 16:52 White Blood Count 9.8 K/uL (4.8-10.8) Red Blood Count 4.78 MIL/uL (4.00-5.50) Hemoglobin 14.0 g/dL (12.0-16.0) Hematocrit 44.0 % (36-48) Mean Corpuscular Volume 92.1 fL (79-99) Mean Corpuscular Hemoglobin 29.3 pg (27.0-33.0) Mean Corpuscular Hemoglobin Concent 31.8 g/dL (32.0-36.0) L Red Cell Distribution Width 14.1 % (11.0-15.5) Platelet Count 257 K/uL (130-400) Mean Platelet Volume 11.1 fL (7.5-10.5) H Immature Granulocyte % (Auto) 0.4 % (0-1) Neutrophils (%) (Auto) 65.7 % (40.0-77.0) Lymphocytes (%) (Auto) 16.4 % (21.0-51.0) L Monocytes (%) (Auto) 7.2 % (3.0-13.0) Eosinophils (%) (Auto) 9.6 % (0.0-8.0) H Basophils (%) (Auto) 0.7 % (0.0-5.0) Neutrophils # (Auto) 6.4 K/uL (1.8-7.7) Lymphocytes # (Auto) 1.6 K/uL (1.0-4.8) Monocytes # (Auto) 0.7 K/uL (0.1-1.0) Eosinophils # (Auto) 0.94 K/uL (0.00-0.70) H Basophils # (Auto) 0.07 K/uL (0.00-0.20) Absolute Immature Granulocyte (auto 0.04 K/uL (0-1) Nucleated Red Blood Cells 0.0 % (0.0-0.19) Erythrocyte Sedimentation Rate 55 MM/HR (0-20) H Sodium Level 141 mmol/L (136-145) Potassium Level 4.1 mmol/L (3.5-5.1) Chloride Level 104 mmol/L (101-111) Carbon Dioxide Level 30 mmol/L (21-32) Blood Urea Nitrogen 17 mg/dL (7-18) Creatinine 0.6 mg/dL (0.5-1.0) Glomerular Filtration Rate Calc 111 mL/min (>90) Random Glucose 124 mg/dL (70-105) H Total Calcium 8.4 mg/dL (8.5-10.1) L Total Bilirubin 0.3 mg/dL (0.2-1.0) Aspartate Amino Transf (AST/SGOT) 27 U/L (10-37) Alanine Aminotransferase (ALT/SGPT) 26 U/L (12-78) Alkaline Phosphatase 112 U/L (50-136) C-Reactive Protein, Quantitative 18.40 mg/L (0.5-3.0) H Total Protein 7.1 g/dL (6.0-8.3) Albumin 2.6 g/dL (3.5-5.0) L Labs Reviewed?: Yes X-RAY Comment: Three-view x-ray of the right ankle with no cortical anomalies or deformities as interpreted by me. ED Course ED Course Orders Procedure Category Date Status Time Cbc With Differential LAB 05/24/25 Complete 17:01 Comprehensive LAB 05/24/25 Complete Metabolic Panel 17:01 Ankle Comp 3vws Lt RAD 05/24/25 Resulted 17:01 Crp Quantitative LAB 05/24/25 Complete 17:01 Erythrocyte LAB 05/24/25 Complete Sedimentation Rate 17:01 Blood Cult CANDACE 05/24/25 In Process 17:01 Ketorolac PHA 05/24/25 Complete Tromethamine 30mg/Ml 17:30 Current Medications Medications (Trade) Dose Ordered Sig/Ak[place] Route PRN Reason Start Time Stop Time Status Last Admin Dose Admin Ketorolac Tromethamine (toRADol) 30 mg ONCE ONCE IVP 05/24/25 17:30 05/24/25 17:31 DC 05/24/25 17:16 Vital Signs Date Time Temp Pulse Resp B/P (MAP) Pulse Ox O2 Delivery O2 Flow Rate FiO2 05/24/25 16:17 98.1 79 16 131/81 96 Room Air 0 Medical Decision Making MDM MDM: Differential diagnosis: Cellulitis, local skin infection, abscess. Rationale: Tests considered and ordered secondary to shared decision making include: Previous outside records reviewed: Old ER visits. Risk of complication and/or morbidity or mortality of patient management: None Medications-Per medication reconciliation Need for hospitalization: Patient does not meet criteria for hospitalization. Need for emergency major/minor surgery: No There are no social concerns with this patient. Prescription drug management Prescriptions will include symptomatic care Patient's prior external medical records from other ER visits were reviewed by me as indicated. Prior testing and results from previous visits were reviewed. Prior tests were taken into account with medical decision making and resource utilization, independent historian/historians were used to obtain complete medical history. I independently interpreted the test that were performed, results were reviewed by me and considered findings on radiology if ordered. Medical management and examination interpretation discussions were had by me with other qualified healthcare professionals as indicated for the patient's care. DX & DISP Disposition: Discharge Departure Impression: Primary Impression: Cellulitis of right lower leg Condition: Stable Scripts Sulfamethoxazole/Trimethoprim (Bactrim Ds Tablet) 800 Mg-160 Mg Tablet 1 TAB PO BID for 7 Days, #14 TAB 0 Refills Prov: GERARDO PRITCHETT 05/24/25 Referrals: ANGELLA MOISE MD (PCP) Time of Disposition: 18:53 GERARDO PRITCHETT May 24, 2025 17:06
[2025-05-24 17:14] LABS: IMMATURE GRANULOCYTE ABSOLUTE 0.04 K/uL (0-1); NUCLEATED RED BLOOD CELLS 0.0 % (0.0-0.19); PLATELET COUNT (AUTO) 257 K/uL (130-400); RED BLOOD CELL COUNT(AUTO) 4.78 MIL/uL (4.00-5.50); RED CELL DISTRIBUTION WIDTH 14.1 % (11.0-15.5); WHITE BLOOD COUNT (AUTO) 9.8 K/uL (4.8-10.8)
[2025-05-24 18:02] LABS: CREATININE 0.6 mg/dL (0.5-1.0); GLOMERULAR FILTR. RATE CALC 111.0 mL/min (>90); GLUCOSE,RANDOM 124.0 mg/dL (70-105); SODIUM SERUM 141.0 mmol/L (136-145); UREA NITROGEN, BLOOD 17.0 mg/dL (7-18)
[2025-05-24 18:07] LABS: ASPARTATE AMINOTRANSFERASE 27.0 U/L (10-37); TOTAL PROTEIN, SERUM 7.1 g/dL (6.0-8.3)
[2025-05-24 18:18] LABS: ERYTHROCYTE SEDIMENTATION RATE 55 MM/HR (0-20)
--- NOTE | 2025-05-24 18:37 | HMCIMG ---
EXAM: CR right ankle, 3 View. CLINICAL HISTORY: pain COMPARISON: None provided. FINDINGS: BONES: No acute fracture or aggressive appearing osseous lesion. JOINTS: The joint spaces appear within normal limits. No dislocation. No radiographic evidence of a joint effusion. SOFT TISSUES: The soft tissues are unremarkable. MISCELLANEOUS: Large calcaneal spur IMPRESSION: Large calcaneal spur /Anthony
[2025-05-24] MEDS ORDERED: SULF1TAB42 PO (18:53)
[2025-05-24 19:12] VITALS: BP 128/71; PULSE 82; RESP 17; TEMP 98; O2SAT 99
== END 2025-05-24 19:14 | disposition home or self-care (01) ==
LOC: EDH 16:15
DX: L03.115 Cellulitis of right lower limb (principal); I10 Essential (primary) hypertension; M19.90 Unspecified osteoarthritis, unspecified site; Z79.52 Long term (current) use of systemic steroids; Z79.624 Long term (current) use of inhibitors of nucleotide synthesis; Z79.631 Long term (current) use of antimetabolite agent; Z79.69 Long term (current) use of other immunomodulators and immunosuppressants; Z90.710 Acquired absence of both cervix and uterus
CPT/HCPCS: 99284; 96374; 80053; 85025; 85651; 87040 ×2; 86140; 36415; 73610; J1885